=== PATIENT | male | born 1950 | race Caucasian/White ===

== ENCOUNTER 2021-04-10 10:33 | Outpatient (REF) | payer MEDICARE, SELFPAY ==
[2021-04-10 13:45] LABS: MANUAL DIFF FLAG NO
[2021-04-10 13:57] LABS: Basophils Percent Auto 0.5 % (0-2); Eosinophils Absolute Auto 0.2 X10*3/uL (0.0-0.4); Eosinophils Percent Auto 5.6 % (0-4); Hematocrit 43.1 % (42.0-52.0); Imm Gran Abs Auto 0.01 X10*3/uL (0.00-0.03); Imm Gran Pct Auto 0.2 % (0.0-0.4); Lymphocytes Absolute Auto 1.3 X10*3/uL (1.2-4.9); Lymphocytes Percent Auto 29.6 % (20-40); Mean Corpuscular HGB Conc 34.8 g/dl (31.0-36.0); Mean Corpuscular Hemoglobin 31.3 pg (27.0-33.0); Mean Platelet Volume 10.4 fL (9.4-12.4); Monocytes Absolute Auto 0.4 X10*3/uL (0.1-1.2); Monocytes Percent Auto 8.6 % (2-11); Neutrophils Absolute Auto 2.4 x10*3/uL (2.0-8.3); Neutrophils Percent Auto 55.5 % (45-73); Platelet Count 219 X10*3/uL (160-400); Red Blood Count 4.79 X10*6/uL (4.60-5.80); Red Cell Distribution Width 12.2 % (11.0-16.0); White Blood Count 4.3 X10*3/uL (4.8-10.8)
[2021-04-10 14:03] LABS: Appearance Urine CLEAR; Color Urine YELLOW; Glucose Urine UA NEG (NEG); Leukocyte Esterase Urine NEG (NEG); Nitrite Urine NEG (NEG); Urine Blood NEG (NEG); Urine Ketones NEG (NEG); Urine Protein NEG (NEG-TRACE)
[2021-04-10 14:39] LABS: Free T4 (Free Thyroxine) 0.87 ng/dL (0.71-1.85); Prostate Specific Antigen Scr 3.19 ng/mL (<0.05-4.0); Thyroid Stimulating Hormone 2.69 uIU/mL (0.32-4.0)
[2021-04-10 14:42] LABS: Alanine Aminotransferase 30 U/L (0-40); Albumin Level 4.5 g/dL (3.5-5.0); Alkaline Phosphatase 66 U/L (39-117); Anion Gap 11 (12-20); Aspartate Amino Transferase 24 U/L (5-37); Bilirubin Total 0.7 mg/dL (0.0-1.0); Blood Urea Nitrogen 14 mg/dL (9-16); Calcium 8.9 mg/dL (8.4-10.2); Carbon Dioxide 26 mmol/L (22-29); Chloride 104 mmol/L (96-108); Cholesterol 240 mg/dL; Estimated Glomerular Filt Rate > 60; Glucose Fasting 157 mg/dL (60-99); HDL Cholesterol 44 mg/dL; LDL Cholesterol Calculated 163 mg/dl; Potassium 4.3 mmol/L (3.3-5.1); Sodium 137 mmol/L (135-145); Triglycerides 165 mg/dL
[2021-04-10 14:51] LABS: TSH reflex Free T4 2.49 uIU/mL (0.32-4.0)
[2021-04-11 20:41] LABS: Triiodothyronine T3 Total 106 ng/dL (76-181)
== END 2021-04-10 10:34 | disposition home or self-care (01) ==
LOC: HO.WFDLDS 10:33
PROVIDERS: Visit Provider Family Medicine
DX: Z00.00 Encounter for general adult medical examination without abnormal findings (principal); Z12.5 Encounter for screening for malignant neoplasm of prostate; E03.9 Hypothyroidism, unspecified
CPT/HCPCS: 36415; 80053; 80061; 81003; 84153; 84439; 84443; 84480; 85025

== ENCOUNTER 2021-05-22 08:43 | Outpatient (REF) | payer MEDICARE, SELFPAY | END 2021-05-22 08:44 | disposition home or self-care (01) | LOC: HO.WFDLDS 08:43 | PROVIDERS: Visit Provider Internal Medicine | DX: Z20.822 Contact with and (suspected) exposure to COVID-19 (principal) | CPT/HCPCS: C9803; U0003; U0005 ==

== ENCOUNTER 2021-06-26 09:54 | Outpatient (REF) | payer MEDICARE, SELFPAY ==
[2021-06-26 11:14] LABS: Estimated Average Glucose 174 mg/dL; Hemoglobin A1c % 7.7 %
[2021-06-26 11:49] LABS: Anion Gap 10 (12-20); Blood Urea Nitrogen 15 mg/dL (9-16); Calcium 9.8 mg/dL (8.4-10.2); Carbon Dioxide 29 mmol/L (22-29); Chloride 103 mmol/L (96-108); Estimated Glomerular Filt Rate > 60; Glucose Fasting 204 mg/dL (60-99); Potassium 4.3 mmol/L (3.3-5.1); Sodium 138 mmol/L (135-145)
== END 2021-06-26 09:55 | disposition home or self-care (01) ==
LOC: HO.WFDLDS 09:54
PROVIDERS: Visit Provider Family Medicine
DX: R73.01 Impaired fasting glucose (principal)
CPT/HCPCS: 36415; 80048; 83036

== ENCOUNTER 2021-07-11 14:30 | Outpatient (REF) | payer MEDICARE, SELFPAY ==
--- NOTE | ~2021-07-11 | XR_ITS ---
EXAMINATION: XR CHEST CLINICAL INFORMATION: Cough COMPARISON: None TECHNIQUE: 2 views of the chest were obtained. FINDINGS: No significant abnormality is noted involving the heart, lungs, mediastinum, bony thorax or soft tissues. XR/XR chest 2V IMPRESSION: No acute disease.
== END 2021-07-11 14:31 | disposition home or self-care (01) ==
LOC: HO.HMGCX 14:30
PROVIDERS: Visit Provider Family Medicine
DX: R05.9 Cough, unspecified (principal)
CPT/HCPCS: 71046

== ENCOUNTER 2021-07-17 10:00 | Outpatient (RCR) | payer MEDICARE, SELFPAY ==
--- NOTE | 2021-06-12 13:20 | MHC.PT.EP ---
[facility] [place] Office [place] Office [place] Office [address] Conor Bailon [address] [phone] F: [phone] F: [phone] F: [phone] F: [phone] Physical Therapy Plan of Care Date of Evaluation: Date of Surgery: Diagnosis: Left shoulder pain M25.512 signed by Jose Luis Aguilar on 06/05/21 Assessment: Pt is a R hand dominant, 70 y/o retired male, referred to PT on 06/05/[address] Aguilar (seen to establish new PCP point of care) for treatment of left shoulder pain following several year history. Pt expressed history of L distal bicep repair by Dr. Pickard ~2011 with past history of having xray 7 months ago indicating calcification (states xray done at [facility]). Pt exhibits sx consistent with (+) L shoulder impingement/tendonitis, TTP over supraspinatus demonstrating limited/painful AROM, impaired GH mechanics, tight upper trap/lats/periscap, and resulting in impaired tolerance for elevation, lifting, and sleeping due to pain. Pt was encouraged to attend skilled PT services at a frequency of 2x/week x 4 weeks, however pt electing 1x/weekly to address impairments, implement HEP, and restore functional mobility tolerance to resume PLOF. Today after initial evaluation, he was initiated in AAROM cane flexion/scaption in supine and also seated option of AAROM tables slides to address ROM deficits in scaption/flexion. Stretches for L levator scap and upper trap were was also initiated with good tolerance. He demonstrated good response to trial of gentle oscillatory GH inferior/posterior joint mobs. He was educated in the benefit of icing to minimize pain in the L shoulder. He was educated re: findings of evaluation, causes of impingement/calcific tendonitis, goal of PT, and HEP program which was issued in writing. Frequency and Duration: The patient will be seen 1x/week x 4 weeks Short Term Goals: 1. AAROM L shoulder flexion to 120. 2. AAROM L shoulder scaption to 120. 3. AAROM IR to midline lumbar L3. 4. Initiate HEP and self care. 5. SPADI scores to improve by 25%. Penitentiary Goals: 1. AROM L shoulder to flexion to 150 to reach overhead. 2. I HEP. 3. Strength 5/5 all planes L shoulder. 4. Resume sleeping without disturbance secondary to pain in L UE. 5. SPADI score to be improved by 50%. Treatment Plan: Modalities to reduce pain, spasms and effusion. Manual therapy to restore motion and function. Therapeutic exercise to improve strength and flexibility. Neuromuscular re-education for posture and balance. Therapeutic activities to return to functional activities of daily living. Electronically signed by: Ania Gaspar PT, DPT Please sign and return to therapist. Thank you for your referral.
== END 2021-12-05 13:46 | disposition home or self-care (01) ==
LOC: HO.PTWFD 10:00
PROVIDERS: PCP Family Medicine; Visit Provider Family Medicine
DX: M25.512 Pain in left shoulder (principal)
CPT/HCPCS: 97110; 97140; 97161; 97535

== ENCOUNTER 2021-08-14 09:38 | Outpatient (REF) | payer MEDICARE, SELFPAY ==
[2021-08-14 11:41] LABS: Cholesterol 248 mg/dL; HDL Cholesterol 39 mg/dL; LDL Cholesterol Calculated 186 mg/dl; Triglycerides 116 mg/dL
== END 2021-08-14 09:39 | disposition home or self-care (01) ==
LOC: HO.WFDLDS 09:38
PROVIDERS: Visit Provider Family Medicine
DX: Z00.00 Encounter for general adult medical examination without abnormal findings (principal); E78.5 Hyperlipidemia, unspecified
CPT/HCPCS: 36415; 80061

== ENCOUNTER 2021-12-08 08:18 | Outpatient (REF) | payer MEDICARE, SELFPAY ==
[2021-12-08 11:44] LABS: Alanine Aminotransferase 25 U/L (0-40); Albumin Level 4.6 g/dL (3.5-5.0); Alkaline Phosphatase 61 U/L (39-117); Anion Gap 12 (12-20); Aspartate Amino Transferase 24 U/L (5-37); Bilirubin Total 0.8 mg/dL (0.0-1.0); Blood Urea Nitrogen 17 mg/dL (9-16); Carbon Dioxide 25 mmol/L (22-29); Chloride 107 mmol/L (96-108); Cholesterol 157 mg/dL; Estimated Glomerular Filt Rate > 60; Glucose Fasting 94 mg/dL (60-99); HDL Cholesterol 46 mg/dL; LDL Cholesterol Calculated 102 mg/dl; Potassium 4.5 mmol/L (3.3-5.1); Sodium 139 mmol/L (135-145); Total Protein 6.8 g/dL (6.5-8.0); Triglycerides 48 mg/dL
[2021-12-08 12:21] LABS: Creatinine Urine 165.96 mg/dL
== END 2021-12-08 08:19 | disposition home or self-care (01) ==
LOC: HO.WFDLDS 08:18
PROVIDERS: Visit Provider Family Medicine
DX: Z00.00 Encounter for general adult medical examination without abnormal findings (principal); I10 Essential (primary) hypertension; E78.5 Hyperlipidemia, unspecified; E11.9 Type 2 diabetes mellitus without complications
CPT/HCPCS: 36415; 80053; 80061; 82043

== ENCOUNTER 2022-06-08 08:46 | Outpatient (REF) | payer MEDICARE, SELFPAY ==
[2022-06-08 11:05] LABS: MANUAL DIFF FLAG NO
[2022-06-08 11:13] LABS: Basophils Absolute Auto 0.1 X10*3/uL (0.0-0.2); Eosinophils Absolute Auto 0.2 X10*3/uL (0.0-0.4); Eosinophils Percent Auto 3.1 % (0-4); Hematocrit 44.4 % (42.0-52.0); Imm Gran Abs Auto 0.01 X10*3/uL (0.00-0.03); Imm Gran Pct Auto 0.2 % (0.0-0.4); Lymphocytes Absolute Auto 1.5 X10*3/uL (1.2-4.9); Mean Corpuscular HGB Conc 33.8 g/dl (31.0-36.0); Mean Corpuscular Hemoglobin 31.9 pg (27.0-33.0); Mean Corpuscular Volume 94.5 fL (80.0-98.0); Mean Platelet Volume 10.2 fL (9.4-12.4); Monocytes Absolute Auto 0.4 X10*3/uL (0.1-1.2); Monocytes Percent Auto 7.8 % (2-11); Neutrophils Absolute Auto 2.7 x10*3/uL (2.0-8.3); Neutrophils Percent Auto 56.9 % (45-73); Platelet Count 221 X10*3/uL (160-400); Red Cell Distribution Width 12.4 % (11.0-16.0); White Blood Count 4.8 X10*3/uL (4.8-10.8)
[2022-06-08 11:17] LABS: Appearance Urine Clear; Color Urine Yellow; Glucose Urine UA Negative (Negative); Leukocyte Esterase Urine Negative (Negative); Nitrite Urine Negative (Negative); PH 5.5 (5.0-9.0); Specific Gravity - Urine >= 1.030 (1.005-1.025); Urine Blood Negative (Negative); Urine Ketones Negative (Negative); Urine Protein Negative (Neg-Trace)
[2022-06-08 11:30] LABS: Alanine Aminotransferase 19 U/L (0-40); Albumin Level 4.2 g/dL (3.5-5.0); Alkaline Phosphatase 49 U/L (39-117); Anion Gap 10 (12-20); Aspartate Amino Transferase 16 U/L (5-37); Bilirubin Total 0.6 mg/dL (0.0-1.0); Blood Urea Nitrogen 21 mg/dL (9-16); Carbon Dioxide 27 mmol/L (22-29); Chloride 107 mmol/L (96-108); Cholesterol 181 mg/dL; Estimated Glomerular Filt Rate > 60; Glucose Fasting 154 mg/dL (60-99); HDL Cholesterol 46 mg/dL; LDL Cholesterol Calculated 120 mg/dl; Potassium 4.1 mmol/L (3.3-5.1); Sodium 140 mmol/L (135-145); Total Protein 6.4 g/dL (6.5-8.0); Triglycerides 78 mg/dL
[2022-06-08 11:46] LABS: Prostate Specific Antigen Scr 4.88 ng/mL (<0.05-4.0); TSH reflex Free T4 3.27 uIU/mL (0.32-4.0)
[2022-06-08 12:52] LABS: Creatinine Urine 132.28 mg/dL; Microalbum/Creatinine Ratio Ur 7.5 ug/mg cr
== END 2022-06-08 08:47 | disposition home or self-care (01) ==
LOC: HO.WFDLDS 08:46
PROVIDERS: Visit Provider Family Medicine
DX: Z00.00 Encounter for general adult medical examination without abnormal findings (principal); Z12.5 Encounter for screening for malignant neoplasm of prostate; I10 Essential (primary) hypertension
CPT/HCPCS: 36415; 80053; 80061; 81003; 82043; 84153; 84443; 85025

== ENCOUNTER → 2022-06-26 09:02 | Outpatient (BNVA) | payer MEDICARE, SELFPAY | PROVIDERS: PCP Family Medicine; Visit Provider Nurse Practitioner Family | DX: R97.20 Elevated prostate specific antigen [PSA] (principal); N40.1 Benign prostatic hyperplasia with lower urinary tract symptoms; R35.0 Frequency of micturition; R35.1 Nocturia | CPT/HCPCS: 51798; 99202 ==

== ENCOUNTER 2022-07-16 11:42 | Emergency (ER) | payer MEDICARE, SELFPAY ==
--- NOTE | ~2022-07-16 | XR_ITS ---
EXAMINATION: XR SHOULDER, RIGHT CLINICAL INFORMATION: Decreased range of motion after falling COMPARISON: None TECHNIQUE: AP external rotation, Grashey, scapular Y, and axillary views of the right shoulder. FINDINGS: Small fragment of bone seen related to the supraspinatus tendon but no acute fracture, dislocation or destructive process. There is degenerative change in the right AC joint. The clavicle does appear intact. XR/XR shoulder RT min 2V IMPRESSION: No acute findings. There is mild degenerative change related to the supraspinatus tendon.
--- NOTE | 2022-07-16 13:00 | ED.FALL ---
HPI - Fall General Chief Complaint: Fall Stated Complaint: fall 07/16/22 Time Seen by Provider: 07/16/22 14:26 Source: patient Mode of arrival: ambulatory Limitations: no limitations History of Present Illness HPI Narrative: Patient is a 71-year-old male who presents to the emergency department for evaluation after a fall. This occurred today. Fell down about 7-8 stairs, right arm was raised overhead, slid down on right side. No forward fall, no neurological complaints, Denies head strike, LOC, AC usage. Pain present to right shoulder with limited AROM, right elbow with abrasions mild pain and near full AROM, abrasions to digits on right hand. Related Data Home Medications Medication Instructions Recorded Confirmed ascorbic acid (vitamin C) 1,000 mg 1 g PO DAILY 06/05/21 06/26/22 tablet cholecalciferol (vitamin D3) 25 25 mcg PO DAILY 06/05/21 06/26/22 mcg (1,000 unit) capsule magnesium 200 mg tablet 200 mg PO DAILY 06/05/21 06/26/22 Previous Rx's Medication Instructions Recorded atorvastatin 20 mg tablet 20 mg PO BEDTIME 90 days #90 tabs 12/10/21 metformin 500 mg tablet 500 mg PO DAILY 90 days #90 tabs 12/10/21 levothyroxine 50 mcg tablet 50 mcg PO DAILY 90 days #90 tabs 05/25/22 terazosin 5 mg capsule 5 mg PO BEDTIME 90 days #90 caps 06/26/22 omeprazole 20 mg capsule,delayed 20 mg PO DAILY #14 caps 07/16/22 release Allergies Allergy/AdvReac Type Severity Reaction Status Date / Time No Known Allergies Allergy Verified 06/26/22 10:30 Review of Systems Review of Systems: Yes all other systems are reviewed and are negative [facility] Past Medical History Attestation statement: The following information was validated with the patient. Source: old records reviewed Surgical History History of hernia repair Family History Family History Mother No problems noted. Father No problems noted. Social History Social History Housing: Apartment Patient Tobacco Use Status: Former Tobacco user Quit Date: 1981 Tobacco use type: Cigarette Years Smoked: 12 years e-Cigarette/Vaping Use: Never Used Second Hand Smoke Exposure: No Advance Directives: No Advance Directives Information Provided: No service: No Current occupational status: retired Current occupational exposures/hazards: No Cognitive needs: No Hearing needs: No Vision needs: No Physical Exam Vital Signs: Vital Signs: Last Vital Signs Temp 97.9 F 07/16/22 13:02 Pulse 78 07/16/22 13:02 Resp 16 07/16/22 13:02 BP 157/86 H 07/16/22 13:02 Pulse Ox 98 07/16/22 13:02 O2 Del Method 07/16/22 13:02 BMI result Body Mass Index 27.1 Appearance: Alert.?Oriented to person, place and time. No acute distress.?Normal affect. Head: Normocephalic atraumatic Eyes: Pupils equal, round and reactive to light.? EOMI. Neck: Normal inspection.? Neck supple.??No midline cervical spine tenderness, step-offs, deformities CVS: Heart sounds normal. Normal heart rate and rhythm.? Pulses normal.?? Respiratory: No respiratory distress.? Lung sounds clear to auscultation bilaterally?? Abdomen: Soft and non-tender. Normoactive bowel sounds. Skin: Skin warm and dry.? Normal skin color.? Extremities: Decreased AROM to right shoulder. 2+ radial pulse bilaterally. Neuro: Moves all extremities spontaneously. Sensation intact bilaterally. No focal neuro deficits. Ambulates with normal steady gait. Course Course Course Narrative: This is an RME: Additional HPI, ROS, PE not included below will be deferred to primary provider. Patient is a 71-year-old male who presents to the emergency department for evaluation after a fall. This occurred today. Fell down about 7-8 stairs, right arm was raised overhead, slid down on right side. No forward fall, no neurological complaints, Denies head strike, LOC, AC usage. Pain present to right shoulder with limited AROM, right elbow with abrasions mild pain and near full AROM, abrasions to digits on right hand. Plan: XR right shoulder Medical Decision Making Medical Decision Making MDM Narrative: Right elbow with full AROM, does not appear consistent with acute fracture dislocation, small abrasion, cleansed, topical bacitracin applied. Right wrist and digits with full range of motion as well, do not suspect acute fracture dislocation. Extremity is neurovascularly intact distally. The right shoulder has significant decreased AROM, diffuse tenderness upon palpation. I have personally interpreted x-ray imaging. Radiologist impression includes no acute fracture, mild degenerative changes related to supraspinatus tendon. I do see the presence of small fragment noted, concern at this time for likely chronic calcific tendinitis versus possible avulsion fracture. Discussed these findings with patient. Will be placed in a sling to immobilize the shoulder, ibuprofen 400 mg 3 times daily, outpatient follow-up with Orthopedics. All questions answered. Differential Diagnosis Differential Diagnoses: The differential diagnosis associated with the presentation includes (Fracture, dislocation, strain, tendon rupture) Independent Interpretation I performed an independent interpretation of an: Plain X-Ray Radiology Impression Discussion of test interpretation with radiology: I have reviewed the radiologist's reading. Radiologist Impression: XR/XR shoulder RT min 2V IMPRESSION: No acute findings. There is mild degenerative change related to the supraspinatus tendon. Prescription Management I considered prescription management with: Pain Medication and Other (PPI) Discharge Plan Discharge Clinical Impression: Right shoulder strain Patient Disposition: Home, Self-Care Additional Instructions: As discussed, please call the orthopedic office, there number has been provided, you will need to follow-up with them. Wear the sling at all times until re-evaluated. Be sure to rest, apply ice to the area for 10-15 minutes 4-6 times daily. You can take ibuprofen 200 mg, 2 tablets (400mg) three times daily every 6-8 hours as needed for pain, in addition to Tylenol 500 mg, 2 tablets (1,000mg) every 4-6 hours as needed for pain, but not to exceed 3 doses daily (3,000mg). Please take the Prilosec as prescribed while taking ibuprofen You may return back to emergency department with any new or worsening symptoms or concerns. ? Prescriptions: New omeprazole 20 mg capsule,delayed release(DR/EC) 20 mg PO DAILY Qty: 14 0RF No Action levothyroxine 50 mcg tablet 50 mcg PO DAILY 90 Days Qty: 90 3RF metformin 500 mg tablet 500 mg PO DAILY 90 Days Qty: 90 2RF atorvastatin 20 mg tablet 20 mg PO BEDTIME 90 Days Qty: 90 2RF cholecalciferol (vitamin D3) 25 mcg (1,000 unit) capsule 25 mcg PO DAILY ascorbic acid (vitamin C) 1,000 mg tablet 1 g PO DAILY magnesium 200 mg tablet 200 mg PO DAILY terazosin 5 mg capsule 5 mg PO BEDTIME 90 Days Qty: 90 1RF Referrals: Maxim Boston PA-C [Physician [employer]] - Interventions: ED Discharge Assessment Last Done: 07/16/22 16:38
[2022-07-16 13:02] VITALS: BP 157/86; PULSE 78; RESP 16; TEMP 36.6; O2SAT 98; BMI 27.1
== END 2022-07-16 19:30 | disposition home or self-care (01) ==
PROVIDERS: Emergency Provider Emergency Medicine; PCP Family Medicine
DX: S46.911A Strain of unspecified muscle, fascia and tendon at shoulder and upper arm level, right arm, initial encounter (principal); S50.311A Abrasion of right elbow, initial encounter; S60.419A Abrasion of unspecified finger, initial encounter; W10.8XXA Fall (on) (from) other stairs and steps, initial encounter; Y93.9 Activity, unspecified; Y92.038 Other place in apartment as the place of occurrence of the external cause; Y99.9 Unspecified external cause status
CPT/HCPCS: 73030; 99282; 99283

== ENCOUNTER 2022-07-23 09:39 | Outpatient (REF) | payer MEDICARE, SELFPAY ==
--- NOTE | ~2022-07-23 | US_ITS ---
EXAMINATION: US RETROPERITONEAL COMPLETE (RENAL) CLINICAL INFORMATION: Elevated PSA. COMPARISON: Ultrasound abdomen complete 06/20/2014. TECHNIQUE: Real-time imaging of the kidneys and bladder. FINDINGS: RIGHT KIDNEY: 10.2 x 5.9 x 5.3 cm (SAG x AP x TRV). The kidney is normal in size, contour, and echogenicity. Renal cortical thickness is normal. No renal calculi or hydronephrosis. There is anechoic cyst in midpole medially measuring 0.7 x 0.5 x 0.8 cm. LEFT KIDNEY: 10.5 x 6.0 x 4.9 cm (SAG x AP x TRV). The kidney is normal in size, contour, and echogenicity. Renal cortical thickness is normal. No renal calculi or hydronephrosis. There is anechoic cyst in upper pole laterally measuring 1.8 x 2.1 x 1.9 cm. BLADDER: Well distended and normal. Bilateral ureteral jets are demonstrated. Prevoid bladder volume is 190 mL. Postvoid bladder volume is 85.7 mL. ADDITIONAL FINDINGS: The prostate gland is enlarged. US/US retroperitoneal comp IMPRESSION: There are bilateral renal cysts. There is enlarged prostate gland with moderate postvoid residual bladder volume.
== END 2022-07-23 09:40 | disposition home or self-care (01) ==
LOC: HO.US 09:39
PROVIDERS: PCP Family Medicine; Visit Provider Nurse Practitioner Family
DX: R35.0 Frequency of micturition (principal); R97.20 Elevated prostate specific antigen [PSA]; R35.1 Nocturia
CPT/HCPCS: 76770

== ENCOUNTER → 2022-08-05 09:16 | Outpatient (BNVA) | payer MEDICARE, SELFPAY | PROVIDERS: PCP Family Medicine; Visit Provider Nurse Practitioner Family | DX: R97.20 Elevated prostate specific antigen [PSA] (principal); N40.1 Benign prostatic hyperplasia with lower urinary tract symptoms; R35.1 Nocturia; R35.0 Frequency of micturition | CPT/HCPCS: 99212 ==

== ENCOUNTER 2022-08-31 08:33 | Outpatient (REF) | payer MEDICARE, SELFPAY | END 2022-08-31 08:34 | disposition home or self-care (01) | LOC: HO.WFDLDS 08:33 | PROVIDERS: Visit Provider Nurse Practitioner Family | DX: R97.20 Elevated prostate specific antigen [PSA] (principal); R35.0 Frequency of micturition; R35.1 Nocturia; Z12.5 Encounter for screening for malignant neoplasm of prostate | CPT/HCPCS: 36415; 84153 ==

== ENCOUNTER 2022-09-09 10:02 | Outpatient (REF) | payer MEDICARE, SELFPAY ==
[2022-09-09 11:41] LABS: Anion Gap 12 (12-20); Blood Urea Nitrogen 18 mg/dL (9-16); Calcium 9.8 mg/dL (8.4-10.2); Carbon Dioxide 29 mmol/L (22-29); Chloride 105 mmol/L (96-108); Cholesterol 193 mg/dL; Estimated Glomerular Filt Rate > 60; Glucose Fasting 120 mg/dL (60-99); HDL Cholesterol 56 mg/dL; LDL Cholesterol Calculated 123 mg/dl; Potassium 4.5 mmol/L (3.3-5.1); Sodium 141 mmol/L (135-145); Triglycerides 71 mg/dL
== END 2022-09-09 10:03 | disposition home or self-care (01) ==
LOC: HO.WFDLDS 10:02
PROVIDERS: Visit Provider Family Medicine
DX: Z00.00 Encounter for general adult medical examination without abnormal findings (principal); E78.5 Hyperlipidemia, unspecified
CPT/HCPCS: 36415; 80048; 80061

== ENCOUNTER 2022-10-08 09:00 | Outpatient (RCR) | payer MEDICARE, SELFPAY | END 2022-12-09 08:25 | disposition home or self-care (01) | LOC: HO.PTWFD 09:00 | PROVIDERS: PCP Family Medicine; Visit Provider Physician Assistant | DX: M75.91 Shoulder lesion, unspecified, right shoulder (principal) | CPT/HCPCS: 97110; 97140; 97150; 97161; 97535 ==

== ENCOUNTER 2022-12-10 09:34 | Outpatient (AMB) | payer MEDICARE, SELFPAY ==
[2022-12-10 09:40] VITALS: BP 132/74; PULSE 87; O2SAT 95; BMI 25.8
--- NOTE | 2022-12-10 09:40 | A.OFFPC_ITS ---
Vital Signs 12/10/22 09:40 Height 5 ft 6 in Weight 160 lb BMI 25.8 BP 132/74 Blood Pressure Location Lt brachial Position Sitting Pulse 87 Pulse Source Pulse Oximeter Pulse Oximetry (%) 95 Oxygen Delivery Method Room Air Intake Visit Reasons: Follow-up diabetes and hyperlipidemia Intake Note: Patient is here to follow up on diabetes and hyperlipidemia. Allergies No Known Allergies Allergy (Verified 12/10/22 09:41) Tobacco use date assessed: 12/10/22 Fall risk assessment: 1 Fall in past year Last assessed Fall Risk: 12/10/22 Dental Screening Dental Screen Date: 12/10/22 Did you have a dental visit in the last 12 months?: Yes Did you have a dental problem in the last 6 months where you did not have access to dental care?: No Was dental information given to patient?: No HPI Follow-up diabetes and hyperlipidemia HPI Details 72 y/o male presents to f/u diabetes and hyperlipidemia. Last A1c 09/09/22 was 6.0%. He is on metformin 500mg daily. A1c today 12/10/22 is 5.4%. Labs were drawn 09/09/22. Reviewed labs with pt. Triglycerides 71. TC 193. LDL 123. HDL 56. He is on artovastatin 20mg daily. He denies any problems with his artovastatin. [facility] Surgical History (Updated 12/10/22 @ 09:43 by Celina Batista CMA) History of cataract surgery History of hernia repair Family History Mother No problems noted. Father No problems noted. Social History Housing: Apartment Patient Tobacco Use Status: Former Tobacco user Quit Date: 1981 Tobacco use type: Cigarette Years Smoked: 12 years e-Cigarette/Vaping Use: Never Used Second Hand Smoke Exposure: No service: No Current occupational status: retired Current occupational exposures/hazards: No Cognitive needs: No Hearing needs: No Vision needs: No Questionnaire Thrive Questionnaire Date Thrive assessed: 04/10/21 MARCELINA-7 AMB Questionnaire MARCELINA-7 Date MARCELINA - 7 assessed: 04/01/22 Source: Developed by Drs. Tyler Loya, Diana Rios, Niko Hurst and colleagues, with an educational davi from [employer]. Review of Systems Const Denies chills, Denies fatigue, Denies fever(s), Denies headache(s) and Denies weakness ENT Denies dizziness and Denies headache(s) Card Denies chest pain, Denies lightheadedness, Denies dyspnea and Denies other (Palpitations) Resp Denies cough, Denies dyspnea, Denies wheezing and Denies other ( shortness of breath) Musc Denies numbness and Denies tingling Neuro Denies dizziness, Denies headache(s), Denies numbness, Denies tingling, Denies paresthesias and Denies weakness Psych Denies anxiety and Denies depression Endo Denies fatigue Aller/Immun Denies wheezing Physical exam (Primary Care) Vital Signs: Last Vital Signs Pulse 87 12/10/22 09:40 BP 132/74 12/10/22 09:40 Pulse Ox 95 12/10/22 09:40 Oxygen Delivery Method Room Air 12/10/22 09:40 BMI result Body Mass Index 25.8 Tobacco/Smoking Status: Tobacco use Status Tobacco use date assessed 12/10/22 12/10/22 09:43 Patient Tobacco Use Status Former Tobacco user 12/10/22 09:43 Tobacco use type Cigarette 12/10/22 09:43 e-Cigarette/Vaping Use Never Used 12/10/22 09:43 Thrive Assessment: Date of Thrive Assessment Date Thrive assessed 04/10/21 12/10/22 09:43 Const General: no acute distress and well developed Nutritional Appearance: well nourished Orientation/consciousness: patient oriented x3 [facility] Head: Yes normocephalic and Yes atraumatic Eyes General: appearance normal, both eyes and all related structures Pupils: Equal, round and reactive pupils present EOM: EOMs intact bilaterally Resp Effort & Inspection: normal respiratory effort Auscultation: clear to auscultation bilaterally Cardio Rate: regular rate Rhythm: regular rhythm Heart sounds: S1 normal heart sound present, S2 normal heart sound present, no gallops, no murmurs and no rubs Neuro General: patient oriented x3 and gait normal Cranial nerves: Yes Equal, round and reactive pupils present Psych Affect: normal affect Results AMB Hemoglobin A1c AMB Hemoglobin A1c 5.4 % Last Edit by April Gramajo MA on 12/10/22 10:25 Assessment and Plan Assessment & Plan (1) Diabetes: Code(s): E11.9 - Type 2 diabetes mellitus without complications Plan: A1c 5.4%; good control. Goal is less than 7% Continue current medication regimen for now as he has had difficulty exercising and will be getting a surgery on his shoulder fairly soon. Afterwards, we may consider decreasing his metformin, particularly if A1c continues to decrease. He has an upcoming eye appointment (2) Hyperlipidemia: Code(s): E78.5 - Hyperlipidemia, unspecified Plan: LDL cholesterol is above goal of less than 100 for patient with diabetes Increasing his atorvastatin to 40 mg daily Orders: Orders Lipid Panel Today E78.5 - Hyperlipidemia, unspecified, Z00.00 - Encounter for general adult medical examination without abnormal findings Basic Metabolic Panel Fasting Today E78.5 - Hyperlipidemia, unspecified Medications: Changed From atorvastatin 20 mg PO BEDTIME 90 days 90 tabs 2RF To atorvastatin 40 mg PO BEDTIME 90 tabs 2RF 90 days Coding Level of Care Code Est Pt Level 3 (42680) Diagnoses Diabetes E11.9 Hyperlipidemia E78.5
== END 2022-12-10 10:28 | disposition home or self-care (01) ==
PROVIDERS: PCP Family Medicine; Visit Provider Family Medicine
DX: E11.9 Type 2 diabetes mellitus without complications (principal); E78.5 Hyperlipidemia, unspecified
CPT/HCPCS: 99213

== ENCOUNTER 2023-03-03 10:18 | Outpatient (REF) | payer MEDICARE, SELFPAY ==
[2023-03-03 12:02] LABS: Prostate Specific Antigen 3.54 ng/mL (<0.05-4.0)
== END 2023-03-03 10:19 | disposition home or self-care (01) ==
LOC: HO.LAB 10:18
PROVIDERS: PCP Family Medicine; Visit Provider Nurse Practitioner Family
DX: N40.1 Benign prostatic hyperplasia with lower urinary tract symptoms (principal); Z12.5 Encounter for screening for malignant neoplasm of prostate
CPT/HCPCS: 36415; 84153

== ENCOUNTER 2023-03-04 10:18 | Outpatient (AMB) | payer MEDICARE, SELFPAY ==
--- NOTE | 2023-03-04 10:31 | MHC.OFFVIS ---
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 He has a past medical history of hypothyroidism, elevated PSA, and hyperlipidemia. He presents to the office today for a follow up of his elevated PSA. Recent PSA results reviewed with the patient today. PSAs are as follows: 06/13--3.2 06/15--4.9 09/13--3.5 03/15--3.5 Previous workup has included a retroperitoneal ultrasound noting bilateral kidneys normal in size, contour, and echogenicity. There are no renal calculi or hydronephrosis bilaterally. There are bilateral cysts in the mid pole to upper pole of each kidney. The bladder is well distended and normal. The prostate gland is enlarged measuring approximately 50 mL. Patient with a previous history of prostate biopsy with [facility] with Dr. Martino and biopsy was negative. He states the biopsy was approximately 3 years ago. When asked patient does report a family history of prostate cancer. He reports father and brother both have had prostate cancer. In discussion with the patient today regarding his urination he reports terazosin 5mg daily to be working well. He does endorse to episodes of nocturia with urinary hesitancy however reports symptoms to be much improved compared to prior. He reports never starting Finasteride as planned during last office visit as he did not care for the side effects listed with the medication when he picked it up from the pharmacy. He states his nocturia is substantially better however he does continue with intermittent episodes of nocturia and urinary hesitancy. He otherwise denies urinary urgency, urinary frequency, incontinence, hematuria, dysuria, foul smelling urine, changes to urinary stream, flank pain, fever, and or chills. He is happy with his current voiding parameters. Discussed PCP T calculator 03/15 77% negative, 16% chance of low-grade prostate cancer, and 7% chance high-grade prostate cancer. Discussed surveillance monitoring verses finasteride versus prostate biopsy given family history. He otherwise offers no other issues or concerns at this time. [facility] Surgical History (Updated 12/10/22 @ 09:43 by Celina Batista CMA) History of cataract surgery History of hernia repair Family History Mother No problems noted. Father No problems noted. Social History Housing: Apartment Patient Tobacco Use Status: Former Tobacco user Quit Date: 1981 Tobacco use type: Cigarette Years Smoked: 12 years e-Cigarette/Vaping Use: Never Used Second Hand Smoke Exposure: No service: No Current occupational status: retired Current occupational exposures/hazards: No Cognitive needs: No Hearing needs: No Vision needs: No Review of Systems Const Reports no additional complaints Eyes Reports no additional complaints ENT Reports no additional complaints Card Reports as per HPI Resp Reports no additional complaints GI Reports no additional complaints Reports as per HPI Musc Reports no additional complaints Neuro Reports no additional complaints Psych Reports no additional complaints Endo Details: Patient reports being diagnosed with diabetes however is now more well controlled with metformin and diet control as well as exercise. Reports as per HPI Huang/Lymph Reports no additional complaints Aller/Immun Reports no additional complaints Physical Exam Const General: cooperative, healthy appearing, comfortable, no acute distress, well developed, alert and awake Nutritional Appearance: average body habitus Orientation/consciousness: patient oriented x3 Limitations: no limitations HEENT Head: Yes normal to inspection, Yes normocephalic and Yes atraumatic Ears: hearing grossly normal bilaterally Eyes General: appearance normal, both eyes and all related structures Neck Neck: Yes normal visual inspection and Yes trachea midline Chest Chest palpation & inspection: normal inspection of the chest Resp Effort & Inspection: normal respiratory effort and able to speak in complete sentences Cardio Rate: regular rate GI Inspection: Yes normal to inspection General: Yes no CVA tenderness Back/Spine/Pelvis Back: no CVA tenderness Skin General skin exam: no rashes or lesions noted Neuro General: patient oriented x3 Extrem General: Yes normal to inspection Psych Appearance: grossly normal and well kempt Mental Status: mental status grossly normal Speech and movement: Normal speech and movement present and Clear speech present Affect: normal affect Attitude: cooperative Thought process: Normal thought process present Thought content: Normal thought content present Insight: Good insight present (Psych) Judgement: Good judgement present (Psych) Office Procedures Post Void Residual Post Residual Void Post Void Residual (PVR): 0 21032-Cwmu Void Residual by ultrasound Results AMB Urinalysis, Automated UA Leukoctes 0 Harish/uL Last Edit by Biz In A Box JV on 03/04/23 10:59 UA Nitrite Negative Last Edit by Biz In A Box JV on 03/04/23 10:59 UA Urobilinogen 0.2 mg/dL Last Edit by Coinsetter on 03/04/23 10:59 UA Protein 0 mg/dL Last Edit by Biz In A Box JV on 03/04/23 10:59 UA pH 5.5 Last Edit by Biz In A Box JV on 03/04/23 10:59 UA Blood 0 Dg/uL Last Edit by Coinsetter on 03/04/23 10:59 UA Specific Conklin 1.030 Last Edit by Coinsetter on 03/04/23 10:59 UA Ketone Negative Last Edit by Coinsetter on 03/04/23 10:59 UA Bilirubin 0 mg/dL Last Edit by Coinsetter on 03/04/23 10:59 UA Glucose 0 mg/dL Last Edit by Coinsetter on 03/04/23 10:59 Results Reviewed Results Reviewed: Laboratory Last Values Urine pH (Auto) 5.5 03/04/23 10:50 Specific Conklin (Auto) 1.030 03/04/23 10:50 Urine Protein (Auto) 0 mg/dL 03/04/23 10:50 Glucose (UA)(Auto) 0 mg/dL 03/04/23 10:50 Urine Ketones (Auto) Negative 03/04/23 10:50 Urine Blood (Auto) 0 Dg/uL 03/04/23 10:50 Urine Nitrite (Auto) Negative 03/04/23 10:50 Urine Bilirubin (Auto) 0 mg/dL 03/04/23 10:50 Urine Urobilinogen (Auto) 0.2 mg/dL 03/04/23 10:50 Leukocyte Esterase (Auto) 0 Harish/uL 03/04/23 10:50 Assessment & Plan Assessment & Plan (1) Nocturia: Code(s): R35.1 - Nocturia (2) Enlarged prostate: Code(s): N40.0 - Benign prostatic hyperplasia without lower urinary tract symptoms (3) Urinary hesitancy due to benign prostatic hyperplasia: Code(s): N40.1 - Benign prostatic hyperplasia with lower urinary tract symptoms; R39.11 - Hesitancy of micturition Plan In office urinalysis results reviewed with the patient today; as noted above Recent PSA results reviewed with the patient today as noted above. Continue Terazosin as prescribed Start Finasteride as discussed and prescribed. Patient reports be happy with current voiding parameters; continue terazosin as discussed Patient otherwise denies any bothersome urinary issues or concerns. Follow-up in 6 months with PSA to be completed prior; or sooner with any issues, concerns, and or questions. Orders: Orders AMB Post Void Residual by ultrasound 03/04/23 N40.1 - Benign prostatic hyperplasia with lower urinary tract symptoms PSA,Total (Free>4and<10) 6 Months N40.1 - Benign prostatic hyperplasia with lower urinary tract symptoms Prostate Specific Antigen 03/03/23 N40.1 - Benign prostatic hyperplasia with lower urinary tract symptoms AMB Urinalysis Automated 03/04/23 Z13.9 - Encounter for screening, unspecified Patient Instructions: The patient had an opportunity to ask questions regarding the treatment plan. All questions were answered. Physical exam, labs, and imaging were discussed and reviewed in detail. As well as risks, benefits, and discussion of treatment choices. No major barriers to understanding were identified. The patient expressed understanding and agreement with the above treatment plan. The patient was made aware they should contact our office by phone for worsening of their current condition, the appearance of new symptoms, or with any questions or concerns. Compliance is encouraged with any medications and follow up testing that is ordered. It is a privilege to be allowed the opportunity to participate in? your urological care.? Again, if you have any questions or concerns If you have any questions or concerns please do not hesitate to contact me. The office is [phone]. This note is constructed using voice recognition software. While every effort has been made to ensure accuracy communication specialist errors may have been included. Yours sincerely, CUCA Cummings- Coding Level of Care Code Est Pt Level 3 (86135) Diagnoses Nocturia R35.1 Enlarged prostate N40.0 Urinary hesitancy due to benign prostatic hyperplasia N40.1; R39.11 CPT Codes Post Residual Void - PVR CPT Code: 11224-Enjz Void Residual by ultrasound ([id number])
== END 2023-03-04 11:04 | disposition home or self-care (01) ==
PROVIDERS: PCP Family Medicine; Visit Provider Nurse Practitioner Family
DX: N40.1 Benign prostatic hyperplasia with lower urinary tract symptoms (principal); R35.1 Nocturia; R39.11 Hesitancy of micturition
CPT/HCPCS: 99213

== ENCOUNTER → 2023-03-04 10:18 | Outpatient (BNVA) | payer MEDICARE, SELFPAY | PROVIDERS: Visit Provider Nurse Practitioner Family | DX: N40.1 Benign prostatic hyperplasia with lower urinary tract symptoms (principal); R35.1 Nocturia; R39.11 Hesitancy of micturition; Z79.899 Other long term (current) drug therapy | CPT/HCPCS: 51798; 81003; 99212 ==

== ENCOUNTER 2023-03-08 | Outpatient (REF) | payer MEDICARE, SELFPAY ==
[2023-03-08 11:57] LABS: Anion Gap 13 (12-20); Blood Urea Nitrogen 14 mg/dL (9-16); Calcium 9.2 mg/dL (8.4-10.2); Carbon Dioxide 25 mmol/L (22-29); Chloride 105 mmol/L (96-108); Cholesterol 134 mg/dL (<200); Estimated Glomerular Filt Rate > 60; Glucose Fasting 119 mg/dL (60-99); HDL Cholesterol 43 mg/dL (>40); LDL Cholesterol Calculated 78 mg/dL (<100); Potassium 4.2 mmol/L (3.3-5.1); Sodium 139 mmol/L (135-145); Triglycerides 69 mg/dL (<150)
== END 2023-03-08 00:01 | disposition home or self-care (01) ==
LOC: HO.WFDLDS
PROVIDERS: Nurse Practitioner Family; Visit Provider Family Medicine
DX: Z00.00 Encounter for general adult medical examination without abnormal findings (principal); E78.5 Hyperlipidemia, unspecified; N40.1 Benign prostatic hyperplasia with lower urinary tract symptoms; Z12.5 Encounter for screening for malignant neoplasm of prostate
CPT/HCPCS: 36415; 80048; 80061; 84153

== ENCOUNTER 2023-03-11 09:00 | Outpatient (RCR) | payer MEDICARE, SELFPAY | END 2023-06-22 13:15 | disposition home or self-care (01) | LOC: HO.PTWFD 09:00 | PROVIDERS: PCP Family Medicine; Visit Provider Physician Assistant | DX: Z98.890 Other specified postprocedural states (principal) | CPT/HCPCS: 97110; 97140; 97162 ==

== ENCOUNTER 2023-03-15 08:32 | Outpatient (AMB) | payer MEDICARE, SELFPAY ==
--- NOTE | 2023-03-15 08:37 | A.OFFPC_ITS ---
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 Had increased his artovastatin last office visit from 20mg to 40mg. He is followed by Urology for prostate enlargement. They had added finasteride and continued his terazosin 5mg. Labs were drawn 03/08/23. Reviewed labs with pt. Triglycerides 69. TC 134. LDL 78. HDL 43. A1c today 03/15/23 is 5.6%. He is on metformin 500mg daily. He continues seeing his eye doctor once a year. He notes he has not been exercising as much since his surgery in November. He does walk. [facility] Medical History No pertinent family history Surgical History Status post tendon reattachment History of cataract surgery History of hernia repair Family History Mother No problems noted. Father No problems noted. Social History Housing: Apartment Patient Tobacco Use Status: Former Tobacco user Quit Date: 1981 Tobacco use type: Cigarette Years Smoked: 12 years e-Cigarette/Vaping Use: Never Used Second Hand Smoke Exposure: No service: No Current occupational status: retired Current occupational exposures/hazards: No Cognitive needs: No Hearing needs: No Vision needs: No Questionnaire Thrive Questionnaire Date Thrive assessed: 04/10/21 MARCELINA-7 AMB Questionnaire MARCELINA-7 Date MARCELINA - 7 assessed: 04/01/22 Source: Developed by Drs. Tyler Loya, Diana Rios, Niko Hurst and colleagues, with an educational davi from [employer]. Review of Systems Const Denies chills, Denies fatigue, Denies fever(s), Denies headache(s) and Denies weakness ENT Denies dizziness and Denies headache(s) Card Denies chest pain, Denies lightheadedness, Denies dyspnea and Denies other (Palpitations) Resp Denies cough, Denies dyspnea, Denies wheezing and Denies other ( shortness of breath) Musc Denies numbness and Denies tingling Neuro Denies dizziness, Denies headache(s), Denies numbness, Denies tingling, Denies paresthesias and Denies weakness Psych Denies anxiety and Denies depression Endo Denies fatigue Aller/Immun Denies wheezing Physical exam (Primary Care) Vital Signs: Last Vital Signs Temp 97.1 F 03/15/23 08:38 Pulse 72 03/15/23 08:38 Resp 13 03/15/23 08:38 BP 134/70 03/15/23 08:38 Pulse Ox 99 03/15/23 08:38 Oxygen Delivery Method Room Air 03/15/23 08:38 BMI result Body Mass Index 26.1 Tobacco/Smoking Status: Tobacco use Status Tobacco use date assessed 12/10/22 03/15/23 08:39 Patient Tobacco Use Status Former Tobacco user 03/15/23 08:39 Tobacco use type Cigarette 03/15/23 08:39 e-Cigarette/Vaping Use Never Used 03/15/23 08:39 Thrive Assessment: Date of Thrive Assessment Date Thrive assessed 04/10/21 03/15/23 08:39 Const General: no acute distress and well developed Nutritional Appearance: well nourished Orientation/consciousness: patient oriented x3 HENMT Head: Yes normocephalic and Yes atraumatic Eyes General: appearance normal, both eyes and all related structures Pupils: Equal, round and reactive pupils present EOM: EOMs intact bilaterally Resp Effort & Inspection: normal respiratory effort Auscultation: clear to auscultation bilaterally Cardio Rate: regular rate Rhythm: regular rhythm Heart sounds: S1 normal heart sound present, S2 normal heart sound present, no gallops, no murmurs and no rubs Neuro General: patient oriented x3 and gait normal Cranial nerves: Yes Equal, round and reactive pupils present Psych Affect: normal affect Assessment and Plan Assessment & Plan (1) Diabetes: Code(s): E11.9 - Type 2 diabetes mellitus without complications Plan: A1c?has?risen?slightly?from?5.4%?to?5.6%.??Goal?is?less?than?7.0%; good?control. Patient?had?recent?shoulder?surgery?and?has?not?been?able?to?exercise?as?much?th ough?this?has?begun?to?improve?again. No?changes?to?current?regimen.??He?will?continue?to?work?on?a?diabetic?diet?and? increase?exercise?as?tolerated. We?discussed?that?if?he?is?able?to?bring?A1c?down?a?bit?more,?we?will?decrea se?his?medication. He?is?up-to-date?with?his?diabetic?eye?exam?and?has?his?next?appointment?in?[place]. (2) Hyperlipidemia: Code(s): E78.5 - Hyperlipidemia, unspecified Plan: LDL?has?improved?and?is?now?at?goal?of?less?than?100?for?a?patient?with?diabetes ,?after?increasing?atorvastatin?to?40?mg?daily Continue?current?medication?regimen (3) Enlarged prostate: Code(s): N40.0 - Benign prostatic hyperplasia without lower urinary tract symptoms Plan: Followed?by?urology. Urology?no?mentions?adding?finasteride?but?patient?has?not?received?this?so?I?se nt?it?for?him Follow-up?with?urology?as?recommended Orders: Orders Microalbumin, Random (w Creat) Today I10 - Essential (primary) hypertension Prostate Specific Antigen Scr Today Z12.5 - Encounter for screening for malignant neoplasm of prostate UA and rflx microscopic Today Z00.00 - Encounter for general adult medical examination without abnormal findings Comprehensive [place]. Panel Fast Today Z00.00 - Encounter for general adult med ical examination without abnormal findings Complete Blood Count Auto Diff Today Z00.00 - Encounter for general adult medical examination without abnormal findings Lipid Panel Today Z00.00 - Encounter for general adult medical examination without abnormal findings TSH reflex Free T4 Today Z00.00 - Encounter for general adult medical examination without abnormal findings Medications: Refilled finasteride 5 mg PO DAILY 90 tabs 3RF 90 days N40.1 - Benign prostatic hyperplasia with lower urinary tract symptoms, R33.9 - Retention of urine, unspecified Coding Level of Care Code Est Pt Level 4 (25658) Diagnoses Diabetes E11.9 Hyperlipidemia E78.5 Enlarged prostate N40.0
[2023-03-15 08:38] VITALS: BP 134/70; PULSE 72; RESP 13; TEMP 36.2; O2SAT 99; BMI 26.1
== END 2023-03-15 09:06 | disposition home or self-care (01) ==
PROVIDERS: PCP Family Medicine; Visit Provider Family Medicine
DX: E11.9 Type 2 diabetes mellitus without complications (principal); E78.5 Hyperlipidemia, unspecified; N40.0 Benign prostatic hyperplasia without lower urinary tract symptoms
CPT/HCPCS: 99214

== ENCOUNTER 2023-06-07 10:26 | Outpatient (REF) | payer MEDICARE, SELFPAY ==
[2023-06-07 13:43] LABS: MANUAL DIFF FLAG NO
[2023-06-07 13:47] LABS: Basophils Percent Auto 0.9 % (0-2); Eosinophils Absolute Auto 0.1 X10*3/uL (0.0-0.4); Eosinophils Percent Auto 3.1 % (0-4); Hematocrit 44.7 % (42.0-52.0); Hemoglobin 15.5 g/dl (14.0-18.0); Imm Gran Abs Auto 0.01 X10*3/uL (0.00-0.03); Imm Gran Pct Auto 0.2 % (0.0-0.4); Lymphocytes Absolute Auto 1.3 X10*3/uL (1.2-4.9); Mean Corpuscular HGB Conc 34.7 g/dl (31.0-36.0); Mean Corpuscular Hemoglobin 31.6 pg (27.0-33.0); Mean Platelet Volume 10.1 fL (9.4-12.4); Monocytes Absolute Auto 0.4 X10*3/uL (0.1-1.2); Monocytes Percent Auto 8.2 % (2-11); Neutrophils Absolute Auto 2.6 x10*3/uL (2.0-8.3); Neutrophils Percent Auto 58.6 % (45-73); Platelet Count 170 X10*3/uL (160-400); Red Blood Count 4.91 X10*6/uL (4.60-5.80); Red Cell Distribution Width 12.2 % (11.0-16.0); White Blood Count 4.5 X10*3/uL (4.8-10.8)
[2023-06-07 13:48] LABS: Appearance Urine Turbid; Color Urine Dark Yellow; Glucose Urine UA Negative (Negative); Leukocyte Esterase Urine Negative (Negative); Nitrite Urine Negative (Negative); Specific Gravity - Urine >= 1.030 (1.005-1.025); Urine Blood Negative (Negative); Urine Ketones Trace mg/dL (Negative); Urine Protein Negative (Neg-Trace)
[2023-06-07 14:13] LABS: Alanine Aminotransferase 33 U/L (0-40); Albumin Level 4.6 g/dL (3.5-5.0); Alkaline Phosphatase 64 U/L (39-117); Anion Gap 14 (12-20); Aspartate Amino Transferase 25 U/L (5-37); Bilirubin Total 1.1 mg/dL (0.0-1.0); Blood Urea Nitrogen 20 mg/dL (9-16); Calcium 9.8 mg/dL (8.4-10.2); Carbon Dioxide 27 mmol/L (22-29); Chloride 104 mmol/L (96-108); Cholesterol 161 mg/dL (<200); Estimated Glomerular Filt Rate > 60; Glucose Fasting 105 mg/dL (60-99); HDL Cholesterol 44 mg/dL (>40); LDL Cholesterol Calculated 101 mg/dL (<100); Potassium 4.4 mmol/L (3.3-5.1); Sodium 141 mmol/L (135-145); Total Protein 7.3 g/dL (6.5-8.0); Triglycerides 84 mg/dL (<150)
[2023-06-07 14:25] LABS: Creatinine Urine 196.87 mg/dL; Microalbum/Creatinine Ratio Ur 5.5 ug/mg cr (<30)
[2023-06-07 14:26] LABS: Prostate Specific Antigen Scr 2.09 ng/mL (<0.05-4.0)
[2023-06-07 14:29] LABS: TSH reflex Free T4 2.87 uIU/mL (0.32-4.0)
== END 2023-06-07 10:27 | disposition home or self-care (01) ==
LOC: HO.WFDLDS 10:26
PROVIDERS: Visit Provider Family Medicine
DX: Z00.00 Encounter for general adult medical examination without abnormal findings (principal); I10 Essential (primary) hypertension; Z12.5 Encounter for screening for malignant neoplasm of prostate
CPT/HCPCS: 36415; 80053; 80061; 81003; 82043; 82570; 84153; 84443; 85025

== ENCOUNTER 2023-06-14 09:59 | Outpatient (AMB) | payer MEDICARE, SELFPAY ==
[2023-06-14 10:03] VITALS: BP 112/68; PULSE 76; O2SAT 96; BMI 25.0
--- NOTE | 2023-06-14 10:03 | A.OFFPC_ITS ---
Vital Signs 06/14/23 10:03 Height 5 ft 6 in Weight 155 lb BMI 25.0 BP 112/68 Blood Pressure Location Lt brachial Position Sitting Pulse 76 Pulse Source Pulse Oximeter Pulse Oximetry (%) 96 Oxygen Delivery Method Room Air Intake Visit Reasons: CPE with f/u labs and health maint. Intake Note: Patient is here for his physical today. Patient would like refill of Terazosin Allergies No Known Allergies Allergy (Verified 06/14/23 10:07) Medication List - Last Reconciled 06/14/23 by Jose Luis Agiular MD ascorbic acid (vitamin C) 1 g PO DAILY aspirin 81 mg PO DAILY atorvastatin 40 mg PO BEDTIME 90 days cholecalciferol (vitamin D3) 25 mcg PO DAILY finasteride 5 mg PO DAILY 90 days levothyroxine 50 mcg PO DAILY 90 days magnesium 200 mg PO DAILY metformin 500 mg PO DAILY 90 days terazosin 5 mg PO BEDTIME 90 days Tobacco use date assessed: 12/10/22 Fall risk assessment: 1 Fall in past year Last assessed Fall Risk: 06/14/23 Dental Screening Dental Screen Date: 06/14/23 Did you have a dental visit in the last 12 months?: Yes Did you have a dental problem in the last 6 months where you did not have access to dental care?: No Was dental information given to patient?: Patient has dentist HPI CPE with f/u labs and health maint. HPI Details 72 y/o male presents for an extended exa m with f/u labs and health maintenance. Labs were drawn 06/07/23. Reviewed labs with pt. Elevated fasting glucose of 105. A1c today 06/14/23 is 5.4%. Triglycerides 84. TC 161. LDL 101. HDL 44. He is on artovastatin 40mg. Blood pressure today 112/68. [facility] Medical History No pertinent family history Surgical History Status post tendon reattachment History of cataract surgery History of hernia repair Family History Mother No problems noted. Father No problems noted. Social History Housing: Apartment Patient Tobacco Use Status: Former Tobacco user Quit Date: 1981 Tobacco use type: Cigarette Years Smoked: 12 years e-Cigarette/Vaping Use: Never Used Second Hand Smoke Exposure: No service: No Current occupational status: retired Current occupational exposures/hazards: No Cognitive needs: No Hearing needs: No Vision needs: No Questionnaire PHQ-9 Over the last 2 weeks, how often have you been bothered by any of the following problems? 1. Little interest or pleasure in doing things: not at all 2. Feeling down, depressed, or hopeless: not at all 3. Trouble falling or staying asleep, or sleeping too much: not at all 4. Feeling tired or having little energy: not at all 5. Poor appetite or overeating: not at all 6. Feeling bad about yourself - or that you are a failure or have let yourself or your family down: not at all 7. Trouble concentrating on things, such as reading the newspaper or watching television: not at all 8. Moving or speaking so slowly that other people could have noticed. Or the opposite - being so fidgety or restless that you have been moving around a lot more than usual: not at all 9. Thoughts that you would be better off or of hurting yourself in some way: not at all Total score: 0 Source: Developed by Drs. Tyler Loya, Diana Rios, Niko Hurst and colleagues, with an educational davi from [employer]. Thrive Questionnaire Date Thrive assessed: 04/10/21 I am a: Patient What is your living situation today?: I have a steady place to live Within the past 12 months, did the food you bought not last and you didn't have the money to get more?: Never true Within the past 12 months, did you worry whether your food would run out before you got money to buy more?: Never true Do you have trouble paying for medicines?: No Do you have trouble getting transportation to medical appointments?: No Do you have trouble paying your heating and electricity bill?: No Do you have trouble taking care of your child, family member or friend?: No Do you have trouble with day-to-day activities such as bathing, preparing meals, shopping, managing finances, etc.?: No Are you currently unemployed and looking for a job?: No Are you interested in more education?: No THRIVE Score: 0 AUDIT C Alcohol Use Questionnaire (AUDIT-C) 1. How often do you have a drink containing alcohol?: Monthly or less 2. How many drinks containing alcohol do you have on a typical day when you are drinking?: 1 or 2 3. How often do you have six or more drinks on one occasion?: Never Total Score: 1 MARCELINA-7 AMB Questionnaire MARCELINA-7 Date MARCELINA - 7 assessed: 06/14/23 Feeling nervous, anxious, or on edge: 0 = Not at all Not being able to stop or control worryin = Not at all Worrying too much about different things: 0 = Not at all Trouble relaxin = Not at all Being so restless that it is hard to sit still: 0 = Not at all Becoming easily annoyed or irritable: 0 = Not at all Feeling afraid as if something awful might happen: 0 = Not at all Total MARCELINA-7 score (0-4 normal; 5-9 mild; 10-14 moderate; 15-21 severe): 0 Source: Developed by Drs. Tyler Loya, Diana Rios, Niko Hurst and colleagues, with an educational davi from [employer]. Review of Systems Const Denies chills, Denies fatigue, Denies fever(s), Denies headache(s) and Denies weakness Eyes Denies change in vision ENT Denies dizziness, Denies headache(s), Denies hearing loss, Denies nasal congestion, Denies sinus pain, Denies sinus pressure and Denies sore throat Card Denies chest pain, Denies lightheadedness, Denies dyspnea and Denies other (palpitations) Resp Denies cough, Denies dyspnea and Denies wheezing GI Denies abdominal pain, Denies melena, Denies hematochezia, Denies change in bowel habits, Denies dyspepsia and Denies nausea Denies hematuria and Denies dysuria Musc Denies abnormal gait, Denies myalgias, Denies arthralgias, Denies numbness and Denies tingling Skin/Breast Denies rash, Denies unusual bruising and Denies wounds Neuro Denies abnormal gait, Denies dizziness, Denies headache(s), Denies memory loss, Denies numbness, Denies Sensory deficit (Neuro), Denies tingling and Denies weakness Psych Denies anxiety, Denies depression and Denies memory loss Endo Denies cold intolerance, Denies fatigue, Denies heat intolerance, Denies polydipsia and Denies polyuria Huang/Lymph Denies easy bleeding and Denies easy bruising Aller/Immun Denies wheezing Physical exam (Primary Care) Vital Signs: Last Vital Signs Pulse 76 06/14/23 10:03 BP 112/68 06/14/23 10:03 Pulse Ox 96 06/14/23 10:03 Oxygen Delivery Method Room Air 06/14/23 10:03 BMI result Body Mass Index 25.0 Tobacco/Smoking Status: Tobacco use Status Tobacco use date assessed 12/10/22 06/14/23 10:07 Patient Tobacco Use Status Former Tobacco user 06/14/23 10:07 Tobacco use type Cigarette 06/14/23 10:07 e-Cigarette/Vaping Use Never Used 06/14/23 10:07 PHQ-9: PHQ-9 Score PHQ-9: Total score 0 06/14/23 10:15 Thrive Assessment: Date of Thrive Assessment Date Thrive assessed 04/10/21 06/14/23 10:07 Const General: no acute distress, well developed, alert and awake Nutritional Appearance: well nourished Orientation/consciousness: patient oriented x3 HENMT Head: Yes normocephalic and Yes atraumatic Ears: hearing grossly normal bilaterally and TM's normal bilaterally General nose exam: Normal external nose present and Normal nares present Mouth: Normal oral and palatal mucosa present and moist mucous membranes Teeth and gingiva: dentition normal Throat: Yes posterior oropharynx normal Eyes General: appearance normal, both eyes and all related structures Pupils: Equal, round and reactive pupils present and Pupil accommodation reflex normal EOM: EOMs intact bilaterally Neck Neck: Yes normal visual inspection, Yes no lymphadenopathy and Yes trachea midline Thyroid: Thyroid normal Carotids: no bruits Lymphatic: no lymphadenopathy noted Chest Chest palpation & inspection: normal inspection of the chest Resp Effort & Inspection: normal respiratory effort Auscultation: clear to auscultation bilaterally Cardio Rate: regular rate Rhythm: regular rhythm Heart sounds: S1 normal heart sound present, S2 normal heart sound present, no gallops, no murmurs and no rubs Bruits: no abdominal aortic bruits and no carotid bruits GI Palpation (GI): No Abdominal aortic bruit present, Soft to palpation, nontender, No hepatosplenomegaly present and No Rebound tenderness present Auscultation: normal bowel sounds General: Yes no CVA tenderness Back/Spine/Pelvis Back: no CVA tenderness Cervical Spine: cervical ROM normal and No Cervical spine tenderness Thoracic/Lumbar Spine: thoraco-lumbar ROM normal, No pain with thoraco-lumbar ROM, No thoracic spinal tenderness and No lumbar spinal tenderness Skin Lesions: no lesions Rashes: no rashes Trauma: no lacerations or abrasions Wounds: no wounds Nails: normal Neuro General: patient oriented x3 Cranial nerves: Yes Equal, round and reactive pupils present Cognition (Neuro): normal cognition Gait exam (Neuro): Normal gait present Motor exam (neuro): 5/5 motor strength present throughout Sensory Exam: No Sensory deficit (Neuro) Deep tendon reflexes (DTR's): Right patellar reflex intensity grade: 2+ and Left patellar reflex intensity grade: 2+ Extrem General: Yes normal to inspection and No edema Psych Appearance: grossly normal Affect: normal affect Attitude: cooperative Thought process: Normal thought process present Results AMB Hemoglobin A1c 2 AMB Hemoglobin A1c 5.4 % Last Edit by Celina Batista CMA on 06/14/23 10:26 Assessment and Plan Assessment & Plan (1) Diabetes: Code(s): E11.9 - Type 2 diabetes mellitus without complications Plan: A1c 5.4% again today Will?decrease?metformin?from?500?mg?daily?to?250?mg?daily Follow-up?in?3?months (2) Hyperlipidemia: Code(s): E78.5 - Hyperlipidemia, unspecified Plan: LDL?cholesterol?slightly?above?goal?of?less?than?100?for?patient?with?diabetes Encouraged?a?diet?lower?in?saturated?fats?and?cholesterol Encouraged?exercise (3) Essential hypertension: Code(s): I10 - Essential (primary) hypertension Plan: Blood?pressure?is?well?controlled.??Goal?is?less?than?140/90 Continue?diet?and?exercise (4) Screening for colon cancer: Code(s): Z12.11 - Encounter for screening for malignant neoplasm of colon Plan: Due?for?5?year?follow-up [place] [place] (5) Screening for prostate cancer: Code(s): Z12.5 - Encounter for screening for malignant neoplasm of prostate Plan: PSA?within?normal?limits Will?continue?annual?screening (6) Adult general medical exam: Code(s): Z00.00 - Encounter for general adult medical examination without abnormal findings Plan: 72-year-old?male?presents?for?an?extended?exam Encouraged?healthy?diet?with?active?lifestyle?and?plenty?of?exercise Orders: Orders AMB Hemoglobin A1c Today Z13.9 - Encounter for screening, unspecified Referrals Gastroenterology Referral Z12.11 - Encounter for screening for malignant neoplasm of colon Medications: Changed From metformin 500 mg PO DAILY 90 days 90 tabs 2RF Z12.11 - Encounter for screening for malignant neoplasm of colon To metformin 250 mg (1/2 x 500 mg) PO DAILY 45 tabs 2RF 90 days Z12.11 - Encounter for screening for malignant neoplasm of colon Refilled terazosin 5 mg PO BEDTIME 90 days 90 caps 3RF N40.1 - Benign prostatic hyperplasia with lower urinary tract symptoms, R35.0 - Frequency of micturition Coding Level of Care Code Est Pt Level 4 (36735) Diagnoses Diabetes E11.9 Hyperlipidemia E78.5 Essential hypertension I10 Screening for colon cancer Z12.11 Screening for prostate cancer Z12.5 Adult general medical exam Z00.00
== END 2023-06-14 10:40 | disposition home or self-care (01) ==
PROVIDERS: PCP Family Medicine; Visit Provider Family Medicine
DX: Z00.00 Encounter for general adult medical examination without abnormal findings (principal); E11.69 Type 2 diabetes mellitus with other specified complication; E78.5 Hyperlipidemia, unspecified; I10 Essential (primary) hypertension; Z12.11 Encounter for screening for malignant neoplasm of colon; Z12.5 Encounter for screening for malignant neoplasm of prostate
CPT/HCPCS: 83036; 99214; 99397

== ENCOUNTER → 2023-08-25 09:05 | Outpatient (BNVA) | payer MEDICARE, SELFPAY | PROVIDERS: PCP Family Medicine; Visit Provider Physician Assistant ==

== ENCOUNTER 2023-09-03 09:28 | Outpatient (AMB) | payer MEDICARE, SELFPAY ==
--- NOTE | 2023-09-03 09:46 | MHC.OFFVIS ---
Intake Intake Visit Reasons: 6m/PSA/PVR Intake Note: Patient is present for follow up labs/elevated psa PSA: 2.09 Urology Medications: terazosin, finasteride Blood Thinner: aspirin PVR: 28ml's [place] Required: No Accompanied by: Self / Same As Patient Allergies No Known Allergies Allergy (Verified 09/03/23 10:06) Medication List - Last Reconciled 09/03/23 by CUCA Cummings-HALEY ascorbic acid (vitamin C) 1 g PO DAILY aspirin 81 mg PO DAILY atorvastatin 40 mg PO BEDTIME 90 days bisacodyl (Dulcolax (bisacodyl)) 20 mg (4 x 5 mg) PO ONCE PRN 1 day cholecalciferol (vitamin D3) 25 mcg PO DAILY finasteride 5 mg PO DAILY 90 days levothyroxine 50 mcg PO DAILY 90 days magnesium 200 mg PO DAILY metformin 250 mg (1/2 x 500 mg) PO DAILY 90 days polyethylene glycol 3350 (Miralax) 238 grams PO ONCE PRN 1 day terazosin 5 mg PO BEDTIME 90 days HPI HPI Comments History of Present Illness Details Luis Carlos is a pleasant 73 year-old male patient of Dr. Aguilar. He has a past medical history of hypothyroidism, elevated PSA, and hyperlipidemia. He presents to the office today for a follow up of his elevated PSA. Recent PSA results reviewed with the patient today. PSAs are as follows: 06/13 3.2, 06/15 4.9, 09/13 3.5, 03/15 3.5, 06/16 2.1 Previous workup has included a retroperitoneal ultrasound noting bilateral kidneys normal in size, contour, and echogenicity. There are no renal calculi or hydronephrosis bilaterally. There are bilateral cysts in the mid pole to upper pole of each kidney. The bladder is well distended and normal. The prostate gland is enlarged measuring approximately 50 mL. Patient with a previous history of prostate biopsy with [facility] with Dr. Martino and biopsy was negative. He states the biopsy was approximately 3 years ago. When asked patient does report a family history of prostate cancer. He reports father and brother both have had prostate cancer. In discussion with the patient today regarding his urination he reports compliance with terazosin and finasteride 5 mg daily. Reports to be happy with his current voiding parameters. He discusses feeling episodes of nocturia have significantly decreased. He does continue with intermittent episodes of urinary frequency throughout the day however does not find them bothersome as they are infrequent. He discusses recently getting labradoodle. In office urinalysis results reviewed with the patient today. PVR 28 mL. He otherwise denies incontinence, hematuria, dysuria, foul smelling urine, changes to urinary stream, flank pain, fever, and or chills. He otherwise offers no other issues or concerns at this time. [facility] Medical History No pertinent family history Surgical History Status post tendon reattachment History of cataract surgery History of hernia repair Family History Mother Multiple myeloma Father Prostate CA Brother Prostate CA Social History Housing: Apartment Patient Tobacco Use Status: Former Tobacco user Quit Date: 1981 Tobacco use type: Cigarette Years Smoked: 12 years e-Cigarette/Vaping Use: Never Used Second Hand Smoke Exposure: No service: No Current occupational status: retired Current occupational exposures/hazards: No Cognitive needs: No Hearing needs: No Vision needs: No Review of Systems Const Reports no additional complaints Eyes Reports no additional complaints ENT Reports no additional complaints Card Reports as per HPI Resp Reports no additional complaints GI Reports no additional complaints Reports as per HPI Musc Reports no additional complaints Neuro Reports no additional complaints Psych Reports no additional complaints Endo Details: Patient reports being diagnosed with diabetes however is now more well controlled with metformin and diet control as well as exercise. Reports as per HPI Huang/Lymph Reports no additional complaints Aller/Immun Reports no additional complaints Physical Exam Const General: cooperative, healthy appearing, comfortable, no acute distress, well developed, alert and awake Nutritional Appearance: average body habitus Orientation/consciousness: patient oriented x3 Limitations: no limitations HEENT Head: Yes normal to inspection, Yes normocephalic and Yes atraumatic Ears: hearing grossly normal bilaterally Eyes General: appearance normal, both eyes and all related structures Neck Neck: Yes normal visual inspection and Yes trachea midline Chest Chest palpation & inspection: normal inspection of the chest Resp Effort & Inspection: normal respiratory effort and able to speak in complete sentences Cardio Rate: regular rate GI Inspection: Yes normal to inspection General: Yes no CVA tenderness Back/Spine/Pelvis Back: no CVA tenderness Skin General skin exam: no rashes or lesions noted Neuro General: patient oriented x3 Extrem General: Yes normal to inspection Psych Appearance: grossly normal and well kempt Mental Status: mental status grossly normal Speech and movement: Normal speech and movement present and Clear speech present Affect: normal affect Attitude: cooperative Thought process: Normal thought process present Thought content: Normal thought content present Insight: Good insight present (Psych) Judgement: Good judgement present (Psych) Office Procedures Post Void Residual Post Residual Void Post Void Residual (PVR): 28 [id number] Void Residual by ultrasound Results AMB Urinalysis, Automated UA Leukoctes 0 Harish/uL Last Edit by [employer] on 09/03/23 09:55 UA Nitrite Negative Last Edit by [employer] on 09/03/23 09:55 UA Urobilinogen 0.2 mg/dL Last Edit by [employer] on 09/03/23 09:55 UA Protein 0 mg/dL Last Edit by [employer] on 09/03/23 09:55 UA pH 5.5 Last Edit by [employer] on 09/03/23 09:55 UA Blood 0 Dg/uL Last Edit by [employer] on 09/03/23 09:55 UA Specific [place] 1.025 Last Edit by [employer] on 09/03/23 09:55 UA Ketone Negative Last Edit by [employer] on 09/03/23 09:55 UA Bilirubin 0 mg/dL Last Edit by [employer] on 09/03/23 09:55 UA Glucose 0 mg/dL Last Edit by [employer] on 09/03/23 09:55 Results Reviewed Results Reviewed: Laboratory Last Values Urine pH (Auto) 5.5 09/03/23 09:48 Specific [place] (Auto) 1.025 09/03/23 09:48 Urine Protein (Auto) 0 mg/dL 09/03/23 09:48 Glucose (UA)(Auto) 0 mg/dL 09/03/23 09:48 Urine Ketones (Auto) Negative 09/03/23 09:48 Urine Blood (Auto) 0 Dg/uL 09/03/23 09:48 Urine Nitrite (Auto) Negative 09/03/23 09:48 Urine Bilirubin (Auto) 0 mg/dL 09/03/23 09:48 Urine Urobilinogen (Auto) 0.2 mg/dL 09/03/23 09:48 Leukocyte Esterase (Auto) 0 Harish/uL 09/03/23 09:48 Assessment & Plan Assessment & Plan (1) Enlarged prostate with lower urinary tract symptoms (LUTS): Code(s): N40.1 - Benign prostatic hyperplasia with lower urinary tract symptoms (2) Enlarged prostate: Code(s): N40.0 - Benign prostatic hyperplasia without lower urinary tract symptoms Plan In office urinalysis results reviewed with the patient today; as noted above. PVR 28ml's. Continue finasteride and terazosin 5 mg daily as prescribed. Patient currently denies any bothersome urinary issues or concerns. Recent PSA results reviewed with the patient today; as noted above. He is happy with his current voiding parameters. Discussed bladder triggers/irritants. Will obtain PSA in 6 months. Follow-up in 6 months with lab to be completed prior; or sooner with any issues, concerns, and or questions. Orders: Orders Prostate Specific Antigen 6 Months N40.0 - Benign prostatic hyperplasia without lower urinary tract symptoms, N40.1 - Benign prostatic hyperplasia with lower urinary tract symptoms AMB Urinalysis Automated 09/03/23 Z13.9 - Encounter for screening, unspecified AMB Post Void Residual by ultrasound 09/03/23 N40.1 - Benign prostatic hyperplasia with lower urinary tract symptoms, R39.11 - Hesitancy of micturition Patient Instructions: The patient had an opportunity to ask questions regarding the treatment plan. All questions were answered. Physical exam, labs, and imaging were discussed and reviewed in detail. As well as risks, benefits, and discussion of treatment choices. No major barriers to understanding were identified. The patient expressed understanding and agreement with the above treatment plan. The patient was made aware they should contact our office by phone for worsening of their current condition, the appearance of new symptoms, or with any questions or concerns. Compliance is encouraged with any medications and follow up testing that is ordered. It is a privilege to be allowed the opportunity to participate in? your urological care.? Again, if you have any questions or concerns If you have any questions or concerns please do not hesitate to contact me. The office is [phone]. This note is constructed using voice recognition software. While every effort has been made to ensure accuracy seat cover maker errors may have been included. Yours sincerely, CUCA Cummings-HALEY Coding Level of Care Code Est Pt Level 3 (49726) Diagnoses Enlarged prostate with lower urinary tract symptoms (LUTS) N40.1 Enlarged prostate N40.0 CPT Codes Post Residual Void - PVR CPT Code: 92030-Vxkb Void Residual by ultrasound ([id number])
== END 2023-09-03 10:09 | disposition home or self-care (01) ==
PROVIDERS: PCP Family Medicine; Visit Provider Nurse Practitioner Family
DX: Z13.9 Encounter for screening, unspecified (principal)
CPT/HCPCS: 99213

== ENCOUNTER → 2023-09-03 09:28 | Outpatient (BNVA) | payer MEDICARE, SELFPAY | PROVIDERS: PCP Family Medicine; Visit Provider Nurse Practitioner Family | DX: N40.0 Benign prostatic hyperplasia without lower urinary tract symptoms (principal) | CPT/HCPCS: 51798; 81003; 99212 ==

== ENCOUNTER 2023-09-13 10:40 | Outpatient (AMB) | payer MEDICARE, SELFPAY ==
--- NOTE | 2023-09-13 10:46 | A.OFFPC_ITS ---
Vital Signs 09/13/23 10:49 Height 5 ft 6 in Weight 160 lb BMI 25.8 BP 126/70 Blood Pressure Location Rt brachial Position Sitting Respiration 14 Pulse 65 Pulse Source Pulse Oximeter Pulse Oximetry (%) 97 Oxygen Delivery Method Room Air Intake Visit Reasons: f/u diabetes Book Critic Required: No Allergies No Known Allergies Allergy (Verified 09/13/23 10:47) Medication List - Last Reconciled 09/13/23 by Jose Luis Aguilar MD ascorbic acid (vitamin C) 1 g PO DAILY aspirin 81 mg PO DAILY atorvastatin 40 mg PO BEDTIME 90 days cholecalciferol (vitamin D3) 25 mcg PO DAILY finasteride 5 mg PO DAILY 90 days levothyroxine 50 mcg PO DAILY 90 days magnesium 200 mg PO DAILY metformin 250 mg (1/2 x 500 mg) PO DAILY 90 days polyethylene glycol 3350 (Miralax) 238 grams PO ONCE PRN 1 day terazosin 5 mg PO BEDTIME 90 days Tobacco use date assessed: 09/13/23 Fall risk assessment: No Falls in past year Last assessed Fall Risk: 09/13/23 Dental Screening Dental Screen Date: 09/13/23 Did you have a dental visit in the last 12 months?: Yes Did you have a dental problem in the last 6 months where you did not have access to dental care?: No Was dental information given to patient?: Patient has dentist HPI f/u diabetes HPI Details 73 y/o male presents to /u diabetes. Last A1c 06/14/23 5.4%. A1c today 09/13/23 5.8%. Had decreased metformin from 500mg daily to 250mg daily. Diabetic eye exam 04/22/23 showed no diabetic retinopathy. [facility] Medical History No pertinent family history Surgical History Status post tendon reattachment History of cataract surgery History of hernia repair Family History Mother Multiple myeloma Father Prostate CA Brother Prostate CA Social History Housing: Apartment Patient Tobacco Use Status: Former Tobacco user Quit Date: 1981 Tobacco use type: Cigarette Years Smoked: 12 years e-Cigarette/Vaping Use: Never Used Second Hand Smoke Exposure: No service: No Current occupational status: retired Current occupational exposures/hazards: No Cognitive needs: No Hearing needs: No Vision needs: No Questionnaire Thrive Questionnaire Date Thrive assessed: 04/10/21 AUDIT C Alcohol Use Questionnaire (AUDIT-C) 1. How often do you have a drink containing alcohol?: Monthly or less 2. How many drinks containing alcohol do you have on a typical day when you are drinking?: 1 or 2 3. How often do you have six or more drinks on one occasion?: Never Total Score: 1 MARCELINA-7 AMB Questionnaire MARCELINA-7 Date MARCELINA - 7 assessed: 06/14/23 Source: Developed by Drs. Tyler Loya, Diana Rios, Niko Hurst and colleagues, with an educational davi from [employer]. Physical exam (Primary Care) Vital Signs: Last Vital Signs Pulse 65 09/13/23 10:49 Resp 14 09/13/23 10:49 BP 126/70 09/13/23 10:49 Pulse Ox 97 09/13/23 10:49 Oxygen Delivery Method Room Air 09/13/23 10:49 BMI result Body Mass Index 25.8 Tobacco/Smoking Status: Tobacco use Status Tobacco use date assessed 09/13/23 09/13/23 10:56 Patient Tobacco Use Status Former Tobacco user 09/13/23 10:46 Tobacco use type Cigarette 09/13/23 10:46 e-Cigarette/Vaping Use Never Used 09/13/23 10:46 Thrive Assessment: Date of Thrive Assessment Date Thrive assessed 04/10/21 09/13/23 10:46 Results AMB Hemoglobin A1c AMB Hemoglobin A1c 5.8 % Last Edit by Jazmine David CMA on 09/13/23 11:04 Results Reviewed Results Reviewed: Laboratory Last Values Hgb A1c (Clinic) 5.8 % (4.0-6.0) 09/13/23 11:00 Assessment and Plan Assessment & Plan (1) Diabetes: Code(s): E11.9 - Type 2 diabetes mellitus without complications Plan: Still?has?good?control?of?fasting?blood?sugars?despite?decreasing?metformin. Would?like?to?trial?discontinuing?metformin?and?controlling?diabetes?just?with?a ?diabetic?diet. Stop?metformin Continue?diet?low?in?sugars?and?starches.??Continue?weight?control?and?exercise Will?follow-up?in?3?months (2) Hyperlipidemia: Code(s): E78.5 - Hyperlipidemia, unspecified Plan: LDL?cholesterol?was?slightly?above?goal?of?less?than?100?at?last?lab?check. He?is?on?atorvastatin?40?mg?daily.??No?medication?changes?made?today Will?repeat?labs?prior?to?his?next?visit?and?follow-up Orders: Orders AMB Hemoglobin A1c Today E11.9 - Type 2 diabetes mellitus without complications Comprehensive [place]. Panel Fast Today E78.5 - Hyperlipidemia, unspecified, Z00.00 - Encounter for general adult medical examination without abnormal findings Lipid Panel Today E78.5 - Hyperlipidemia, unspecified, Z00.00 - Encounter for general adult medical examination without abnormal findings Coding Level of Care Code Est Pt Level 3 (96423) Diagnoses Diabetes E11.9 Hyperlipidemia E78.5
[2023-09-13 10:49] VITALS: BP 126/70; PULSE 65; RESP 14; O2SAT 97; BMI 25.8
== END 2023-09-13 11:21 | disposition home or self-care (01) ==
LOC: HO.HMGFM 10:40
PROVIDERS: PCP Family Medicine; Visit Provider Family Medicine
DX: E11.9 Type 2 diabetes mellitus without complications (principal); E78.5 Hyperlipidemia, unspecified
CPT/HCPCS: 83036; 99213

== ENCOUNTER 2023-11-29 15:47 | Outpatient (AMB) | payer MEDICARE, SELFPAY ==
--- NOTE | 2023-11-29 15:53 | A.OFFPC_ITS ---
Vital Signs 11/29/23 15:55 Height 5 ft 6 in Weight 156 lb 3 oz BMI 25.2 BP 107/58 L Blood Pressure Location Lt brachial Position Sitting Pulse 78 Pulse Source Pulse Oximeter Temp 98.2 F Temp Source Oral Pulse Oximetry (%) 98 Oxygen Delivery Method Room Air Intake Visit Reasons: est/hdf fell on rock Intake Note: Patient is here for follow up after fall on 11/18. Fell and hit his head on a rock. Allergies No Known Allergies Allergy (Verified 11/29/23 15:56) Tobacco use date assessed: 11/29/23 Fall risk assessment: 1 Fall in past year Last assessed Fall Risk: 11/29/23 Dental Screening Dental Screen Date: 09/13/23 Did you have a dental visit in the last 12 months?: Yes Did you have a dental problem in the last 6 months where you did not have access to dental care?: No Was dental information given to patient?: Patient has dentist HPI HPI Comments History of Present Illness Details This is a 73-year-old male with a past medical history of type 2 diabetes, BPH, hyperlipidemia, hypothyroidism and hypertension presenting for ER follow up. Patient suffered a head injury on 11/19/2023. He was [place] 8-month-old dog [place] he accidentally lost his balance stepping on unsettled ground and fell to his left side hitting his head on a rock. He did not lose consciousness. He was able to get up, but he felt stunned and unbalanced. He went back to his vehicle on foot and drove himself home. His friend took him to the hospital. He reported a mild headache at the ER. Denied being on blood thinners, but he does take aspirin daily. Noncontrast head and neck CT showed no acute injuries. Incidental multilevel degenerative changes were noted in the cervical spine. He had a small abrasion on the left scalp that did not require repair. Patient was diagnosed with a concussion. Patient says he is doing well since then. He has mild headaches intermittently and will occasionally feel off balance. He also notes that when he is sleeping he wakes up more frequently and has a harder time getting back to bed. Last night he tried melatonin, and this worked well. He is walking his dog again on even surfaces. Denies increased symptoms with physical activity or when he uses screens. Patient is retired. No prior history of head trauma or concussion. ROS: Constitutional: No unexplained weight loss, fever, chills, fatigue or night sweats. Eyes: No vision changes, blurry vision, double vision. Gastrointestinal: No anorexia, nausea, vomiting. Neurologic: No LOC, syncope, memory loss, seizures, tremors, unilateral weakness, ataxia, numbness or tingling in the extremities. Musculoskeletal: No neck or shoulder pain Psychiatric: No depression or anxiety. Physical exam: Constitutional: Alert, in no distress. Eyes: Pupils are equal, round and reactive to light. Extraocular muscles intact. Respiratory: Clear to auscultation. Cardiovascular: S1 S2 regular. No murmurs. Neurologic:?Alert and oriented x 3, no focal deficits observed, CN 2-12 intact, [id number] normal, sensation equal and symmetric, strength UE and LE 5/5 bilaterally, reflexes equal and symmetric.? Normal gait.? Patient able to heel walk, toe walk and walk heel-to-toe across the floor.? No pronator drift.? Negative Romberg. Skin: healed superficial abrasion on left side of the scalp Musculoskeletal: No gross deformities. Normal range of motion. Psychiatric: Normal mood and affect [facility] Medical History No pertinent family history Surgical History Status post tendon reattachment History of cataract surgery History of hernia repair Family History Mother Multiple myeloma Father Prostate CA Brother Prostate CA Social History Housing: Apartment Patient Tobacco Use Status: Former Tobacco user Tobacco use type: Cigarette Years Smoked: 12 years e-Cigarette/Vaping Use: Never Used Second Hand Smoke Exposure: No service: No Current occupational status: retired Current occupational exposures/hazards: No Cognitive needs: No Hearing needs: No Vision needs: No Questionnaire Thrive Questionnaire Date Thrive assessed: 04/10/21 MARCELINA-7 AMB Questionnaire MARCELINA-7 Date MARCELINA - 7 assessed: 06/14/23 Source: Developed by Drs. Tyler Loya, Niko Carmona nd colleagues, with an educational davi from [employer]. Physical exam (Primary Care) Vital Signs: Last Vital Signs Temp 98.2 F 11/29/23 15:55 Pulse 78 11/29/23 15:55 BP 107/58 L 11/29/23 15:55 Pulse Ox 98 11/29/23 15:55 Oxygen Delivery Method Room Air 11/29/23 15:55 BMI result Body Mass Index 25.2 Tobacco/Smoking Status: Tobacco use Status Tobacco use date assessed 11/29/23 11/29/23 16:01 Patient Tobacco Use Status Former Tobacco user 11/29/23 15:54 Tobacco use type Cigarette 11/29/23 15:54 e-Cigarette/Vaping Use Never Used 11/29/23 15:54 Thrive Assessment: Date of Thrive Assessment Date Thrive assessed 04/10/21 11/29/23 15:54 Assessment and Plan Assessment & Plan (1) Post concussion syndrome: Code(s): F07.81 - Postconcussional syndrome Plan: Patient offered PT referral for vestibular rehab, but since his symptoms are mild and improving he deferred this. Advised patient to stay well hydrated and get adequate sleep. He plans to continue the melatonin short term as needed for sleep difficulty following the injury. This is okay to do. Discussed risk of 2nd impact syndrome. Advised patient to avoid high-risk activities including biking, hiking and walking on uneven terrain. He should not resume normal activities until he is completely symptom free without medications. We discussed that for most people postconcussive symptoms resolve within 30 days of head injury. In some cases symptoms can be prolonged. The patient has a physical scheduled with his PCP later this month for follow up. He will contact the office if he has any questions or concerns. Coding Level of Care Code Est Pt Level 4 (16591) Complex EM visit Add On G2211 Diagnoses Post concussion syndrome F07.81
[2023-11-29 15:55] VITALS: BP 107/58; PULSE 78; TEMP 36.8; O2SAT 98; BMI 25.2
== END 2023-11-29 16:25 | disposition home or self-care (01) ==
PROVIDERS: PCP Family Medicine; Visit Provider Physician Assistant Medical
DX: R51.9 Headache, unspecified (principal); F07.81 Postconcussional syndrome
CPT/HCPCS: 99214; G2211

== ENCOUNTER 2023-12-06 09:07 | Outpatient (REF) | payer MEDICARE, SELFPAY ==
[2023-12-06 11:51] LABS: Alanine Aminotransferase 24 U/L (0-40); Albumin Level 4.4 g/dL (3.5-5.0); Alkaline Phosphatase 60 U/L (39-117); Anion Gap 12 (12-20); Aspartate Amino Transferase 25 U/L (5-37); Bilirubin Total 1.1 mg/dL (0.0-1.0); Blood Urea Nitrogen 19 mg/dL (9-16); Calcium 8.9 mg/dL (8.4-10.2); Carbon Dioxide 25 mmol/L (22-29); Chloride 107 mmol/L (96-108); Cholesterol 137 mg/dL (<200); Estimated Glomerular Filt Rate > 60; Glucose Fasting 94 mg/dL (60-99); HDL Cholesterol 45 mg/dL (>40); LDL Cholesterol Calculated 81 mg/dL (<100); Potassium 4.1 mmol/L (3.3-5.1); Sodium 140 mmol/L (135-145); Total Protein 6.8 g/dL (6.5-8.0); Triglycerides 56 mg/dL (<150)
== END 2023-12-06 09:08 | disposition home or self-care (01) ==
LOC: HO.WFDLDS 09:07
PROVIDERS: Visit Provider Family Medicine
DX: Z00.00 Encounter for general adult medical examination without abnormal findings (principal); E78.5 Hyperlipidemia, unspecified
CPT/HCPCS: 36415; 80053; 80061

== ENCOUNTER 2023-12-13 10:40 | Outpatient (AMB) | payer MEDICARE, SELFPAY ==
--- NOTE | 2023-12-13 10:44 | A.OFFPC_ITS ---
Vital Signs 12/13/23 10:45 Height 5 ft 6 in Weight 161 lb 6 oz BMI 26.0 BP 124/68 Blood Pressure Location Rt brachial Position Sitting Pulse 81 Pulse Source Pulse Oximeter Pulse Oximetry (%) 98 Oxygen Delivery Method Room Air Intake Visit Reasons: f/u diabetes Intake Note: Luis Carlos is a 73 year old male who presents to the office today for a follow up diabetes visit. Pt states he is feeling well. A1C done in office today. Allergies No Known Allergies Allergy (Verified 12/13/23 10:47) Medication List - Last Reconciled 12/13/23 by Jose Luis Aguilar MD ascorbic acid (vitamin C) 1 g PO DAILY aspirin 81 mg PO DAILY atorvastatin 40 mg PO BEDTIME 90 days cholecalciferol (vitamin D3) 25 mcg PO DAILY finasteride 5 mg PO DAILY 90 days levothyroxine 50 mcg PO DAILY 90 days magnesium 200 mg PO DAILY polyethylene glycol 3350 (Miralax) 238 grams PO ONCE PRN 1 day terazosin 5 mg PO BEDTIME 90 days Tobacco use date assessed: 11/29/23 Dental Screening Dental Screen Date: 09/13/23 Did you have a dental visit in the last 12 months?: Yes Did you have a dental problem in the last 6 months where you did not have access to dental care?: No Was dental information given to patient?: Patient has dentist HPI f/u diabetes HPI Details 73 y/o male presents to f/u diet-control led diabetes and hyperlipidemia. Labs were drawn 12/06/23. Reviewed labs with pt. Triglycerides 56. TC 137. LDL 81. HDL 45. He is on artovastatin 40mg. A1c today 12/13/23 is 5.9%. Blood pressure today 124/68. HPI Comments History of Present Illness Details Documentation assistance for Jose Luis Aguilar MD, was provided by Bin Salazar, Political Scientist on 12/13/2023 at 11:01 AM JULIÁN. I, Dr. Aguilar, have read, observed, and verified documentation. FORMERLY [facility], [facility]–1983 Medical History No pertinent family history Surgical History Status post tendon reattachment History of cataract surgery History of hernia repair Family History Mother Multiple myeloma Father Prostate CA Brother Prostate CA Social History Housing: Apartment Patient Tobacco Use Status: Former Tobacco user Tobacco use type: Cigarette Years Smoked: 12 years e-Cigarette/Vaping Use: Never Used Second Hand Smoke Exposure: No service: No Current occupational status: retired Current occupational exposures/hazards: No Cognitive needs: No Hearing needs: No Vision needs: No Questionnaire PHQ-9 Over the last 2 weeks, how often have you been bothered by any of the following problems? 1. Little interest or pleasure in doing things: not at all 2. Feeling down, depressed, or hopeless: not at all 3. Trouble falling or staying asleep, or sleeping too much: not at all 4. Feeling tired or having little energy: not at all 5. Poor appetite or overeating: not at all 6. Feeling bad about yourself - or that you are a failure or have let yourself or your family down: not at all 7. Trouble concentrating on things, such as reading the newspaper or watching television: not at all 8. Moving or speaking so slowly that other people could have noticed. Or the opposite - being so fidgety or restless that you have been moving around a lot more than usual: not at all 9. Thoughts that you would be better off or of hurting yourself in some way: not at all Total score: 0 Source: Developed by Drs. Tyler Loya, Diana Rios, Niko Hurst and colleagues, with an educational davi from [employer]. Thrive Questionnaire Date Thrive assessed: 12/13/23 I am a: Patient What is your living situation today?: I have a steady place to live Within the past 12 months, did the food you bought not last and you didn't have the money to get more?: Never true Within the past 12 months, did you worry whether your food would run out before you got money to buy more?: Never true Do you have trouble paying for medicines?: No Do you have trouble getting transportation to medical appointments?: No Do you have trouble paying your heating and electricity bill?: No Do you have trouble taking care of your child, family member or friend?: No Do you have trouble with day-to-day activities such as bathing, preparing meals, shopping, managing finances, etc.?: No Are you currently unemployed and looking for a job?: No Are you interested in more education?: No THRIVE Score: 0 AUDIT C Alcohol Use Questionnaire (AUDIT-C) 1. How often do you have a drink containing alcohol?: Monthly or less 2. How many drinks containing alcohol do you have on a typical day when you are drinking?: 1 or 2 3. How often do you have six or more drinks on one occasion?: Never Total Score: 1 MARCELINA-7 AMB Questionnaire MARCELINA-7 Date MARCELINA - 7 assessed: 06/14/23 Feeling nervous, anxious, or on edge: 0 = Not at all Not being able to stop or control worryin = Not at all Worrying too much about different things: 0 = Not at all Trouble relaxin = Not at all Being so restless that it is hard to sit still: 0 = Not at all Becoming easily annoyed or irritable: 0 = Not at all Feeling afraid as if something awful might happen: 0 = Not at all Total MARCELINA-7 score (0-4 normal; 5-9 mild; 10-14 moderate; 15-21 severe): 0 Source: Developed by Drs. Tyler Loya, Diana Rios, Niko Hurst and colleagues, with an educational davi from [employer]. Review of Systems Const Denies chills, Denies fatigue, Denies fever(s), Denies headache(s) and Denies weakness ENT Denies dizziness and Denies headache(s) Card Denies dyspnea Resp Denies cough, Denies dyspnea, Denies wheezing and Denies other (shortness of breath) Musc Denies numbness and Denies tingling Neuro Denies dizziness, Denies headache(s), Denies numbness, Denies tingling and Denies weakness Psych Denies anxiety and Denies depression Endo Denies fatigue Aller/Immun Denies wheezing Physical exam (Primary Care) Vital Signs: Last Vital Signs Pulse 81 12/13/23 10:45 BP 124/68 12/13/23 10:45 Pulse Ox 98 12/13/23 10:45 Oxygen Delivery Method Room Air 12/13/23 10:45 BMI result Body Mass Index 26.0 Tobacco/Smoking Status: Tobacco use Status Tobacco use date assessed 11/29/23 12/13/23 10:50 Patient Tobacco Use Status Former Tobacco user 12/13/23 10:50 Tobacco use type Cigarette 12/13/23 10:50 e-Cigarette/Vaping Use Never Used 12/13/23 10:50 PHQ-9: PHQ-9 Score PHQ-9: Total score 0 12/13/23 10:51 Thrive Assessment: Date of Thrive Assessment Date Thrive assessed 12/13/23 12/13/23 10:50 Const General: well developed; No acute distress Nutritional Appearance: well nourished Orientation/consciousness: patient oriented x3 HENMT Head: Yes normocephalic and Yes atraumatic Eyes General: appearance normal, both eyes and all related structures Pupils: Equal, round and reactive pupils present EOM: EOMs intact bilaterally Resp Effort & Inspection: normal respiratory effort Auscultation: clear to auscultation bilaterally Cardio Rate: regular rate Rhythm: regular rhythm Heart sounds: S1 normal heart sound present, S2 normal heart sound present, no gallops, no murmurs and no rubs Neuro General: patient oriented x3 and gait normal Cranial nerves: Yes Equal, round and reactive pupils present Psych Affect: normal affect Results AMB Hemoglobin A1c AMB Hemoglobin A1c 5.9 % Last Edit by Ania Lawson CMA on 12/13/23 11:00 Assessment and Plan Assessment & Plan (1) Diabetes: Code(s): E11.9 - Type 2 diabetes mellitus without complications Plan: Had?stopped?his?metformin?at?last?visit?after?decreasing?it?without?loss?sugar?c ontrol. A1c?today: ?5.9%.??Good?control.??Goal?is?less?than?7.0% Maintain?diet?control?of?diabetes?with?a?diet?low?in?sugars?and?starches, weight?control?and?exercise. Diabetic?eye?exam?in?March?showed?no?diabetic?retinopathy.??Up-to-date (2) Hyperlipidemia: Code(s): E78.5 - Hyperlipidemia, unspecified Plan: Lipids?are?well?controlled?and?LDL?cholesterol?is?at?goal?of?less?than?100 Continue?current?medication (3) Essential hypertension: Code(s): I10 - Essential (primary) hypertension Plan: Controlled. Orders: Orders AMB Hemoglobin A1c Today E11.9 - Type 2 diabetes mellitus without complications Complete Blood Count Auto Diff 4 Months N40.1 - Benign prostatic hyperplasia with lower urinary tract symptoms, Z00.00 - Encounter for general adult medical examination without abnormal findings Lipid Panel 4 Months N40.1 - Benign prostatic hyperplasia with lower urinary tract symptoms, Z00.00 - Encounter for general adult medical examination without abnormal findings Microalbumin, Random (w Creat) 4 Months I10 - Essential (primary) hypertension, N40.1 - Benign prostatic hyperplasia with lower urinary tract symptoms TSH reflex Free T4 4 Months N40.1 - Benign prostatic hyperplasia with lower urinary tract symptoms, Z00.00 - Encounter for general adult medical examination without abnormal findings Prostate Specific Antigen Scr 1 Day N40.1 - Benign prostatic hyperplasia with lower urinary tract symptoms, Z12.5 - Encounter for screening for malignant neoplasm of prostate Comprehensive [place]. Panel Fast 4 Months N40.1 - Benign prostatic hyperplasia with lower urinary tract symptoms, Z00.00 - Encounter for general adult medical examination without abnormal findings UA and rflx microscopic 4 Months N40.1 - Benign prostatic hyperplasia with lower urinary tract symptoms, Z00.00 - Encounter for general adult medical examination without abnormal findings Coding Level of Care Code Est Pt Level 3 (12661) Diagnoses Diabetes E11.9 Hyperlipidemia E78.5 Essential hypertension I10
[2023-12-13 10:45] VITALS: BP 124/68; PULSE 81; O2SAT 98; BMI 26.0
== END 2023-12-13 11:34 | disposition home or self-care (01) ==
PROVIDERS: PCP Family Medicine; Visit Provider Family Medicine
DX: E11.9 Type 2 diabetes mellitus without complications (principal); E78.5 Hyperlipidemia, unspecified; I10 Essential (primary) hypertension
CPT/HCPCS: 83036; 99213

== ENCOUNTER 2023-12-21 11:14 | Outpatient (REF) | payer MEDICARE, SELFPAY ==
[2023-12-21 17:40] LABS: Prostate Specific Antigen Scr 1.73 ng/mL (<0.05-4.0)
== END 2023-12-21 11:15 | disposition home or self-care (01) ==
LOC: HO.WFDLDS 11:14
PROVIDERS: Visit Provider Family Medicine
DX: N40.1 Benign prostatic hyperplasia with lower urinary tract symptoms (principal); Z12.5 Encounter for screening for malignant neoplasm of prostate
CPT/HCPCS: 36415; 84153

== ENCOUNTER 2023-12-28 06:45 | Day surgery (SDC) | payer MEDICARE, SELFPAY ==
[2023-12-28 07:10] VITALS: BP 132/63; PULSE 69; RESP 16; TEMP 36.2; O2SAT 96; BMI 25.4
[2023-12-28] MEDS: Lactated Ringers 1,000 ML 100 ML IVCONT (07:36)
--- NOTE | 2023-12-28 07:58 | MHC.SHP ---
Pre-Procedural Eval Section A - 24 Hr Update-Section A only Date of Service: 12/28/23 Section B - Complete if H&P > 30 days Chief Complaint: Personal history of colonic polyps Relevant Family History (Specify if Yes): No Relevant Social History: None Present Medications: see Short Stay Collaborative assessment Medical History: Significant History (HTN (hypertension) Hypothyroidism Hyperlipidemia Diabetes) History of Previous Operations: Relevant previous surgery/procedure and date(s) (Status post tendon reattachment History of cataract surgery History of hernia repair) Allergies: Allergies Allergy/AdvReac Type Severity Reaction Status Date / Time No Known Allergies Allergy Verified 12/28/23 07:08 Review of Systems Sugical H&P ROS: Negative: Constitution, Cardiovascular, Respiratory, Neurological, Psychiatric, Hem-Onc, Allergic/Immunologic, Gastrointestinal, Genitourinary, Musculoskeletal, Integumentary, Endocrine and Eyes/Ears/Nose/Throat Exam Surgical H&P Exam: Normal: HEENT, Normal: Heart, Normal: Lungs, Normal: Extremities, Normal: Abdomen, Normal: Skin and Normal: Neurological Plan Diagnosis/Plan: Unchanged I have reviewed the history and physical and performed a pertinent physical examination on my patient. No changes have occurred unless specified. Time Spent With Patient Time: Total time managing care of this patient today ____ minutes.
--- NOTE | 2023-12-28 08:01 | PC.NURSE ---
Patient took aspirin yesterday. Dr. Thomas made aware. Okay to proceed.
--- NOTE | 2023-12-28 08:03 | PC.NURSE ---
Dr. Brody at bedside. Made aware of familial history of Malignant Hyperthermia (patients Niece). Patient also no longer takes meds for history of diabetes nor checks his sugars. Per Dr. Brody, no preop blood sugar needed.
--- NOTE | 2023-12-28 08:05 | HO.ANESPROP2 ---
Documented by User: Janette Saleh NP 12/27/23 08:18 HPI - Anesthesia Eval Consult details Narrative: 73yo M for Colonoscopy PMF Active Problems Active Problems: All Active Problems History of colon polyps (Acute) Urinary hesitancy due to benign prostatic hyperplasia (Acute) Enlarged prostate (Acute) Enlarged prostate with lower urinary tract symptoms (LUTS) (Acute) Nocturia (Acute) Urinary frequency (Acute) Elevated PSA (Acute) Pre-hypertension (Acute) Elbow pain (Acute) Low HDL (under 40) (Acute) Diabetes (Acute) Left shoulder pain (Acute) Cough (Acute) Screening for prostate cancer (Acute) Screening for colon cancer (Acute) Hyperlipidemia (Acute) Elevated fasting glucose (Acute) Adult general medical exam (Acute) Arthritis of both knees (Acute) Low back pain (Acute) Mid back pain on right side (Acute) Back pain (Acute) Neck pain (Acute) Hypothyroidism (Acute) Essential hypertension (Acute) Laboratory examination ordered as part of a complete physical examination (Acute) Past Medical History Medical History (Updated 12/28/23 @ 07:48 by Anna Spain RN) HTN (hypertension) Diabetes Hyperlipidemia Hypothyroidism Family History Family History Mother Multiple myeloma Father Prostate CA Brother Prostate CA Surgical History Surgical History (Updated 12/28/23 @ 07:09 by Anna Spain RN) Status post tendon reattachment History of cataract surgery History of hernia repair Social History Social History Housing: Apartment Patient Tobacco Use Status: Former Tobacco user Tobacco use type: Cigarette Years Smoked: 15 Smoked in Last 30 Days: No e-Cigarette/Vaping Use: Never Used Second Hand Smoke Exposure: No Use of substances other than those prescribed or required for medical reasons: No Are you DNR?: No Advance Directives: No Advance Directives Information Provided: Yes service: No Current occupational status: retired Current occupational exposures/hazards: No Cognitive needs: No Hearing needs: No Vision needs: No Meds Allergies Allergy/AdvReac Type Severity Reaction Status Date / Time No Known Allergies Allergy Verified 12/28/23 07:08 Home Medications ?Medication ?Instructions ?Recorded ?Confirmed ?Last Taken ?Type ascorbic acid (vitamin C) 1,000 mg 1 g PO DAILY 06/05/21 12/28/23 Unknown History tablet cholecalciferol (vitamin D3) 25 25 mcg PO DAILY 06/05/21 12/28/23 Unknown History mcg (1,000 unit) capsule magnesium 200 mg tablet 200 mg PO DAILY 06/05/21 12/28/23 Unknown History aspirin 81 mg tablet,delayed 81 mg PO DAILY 08/05/22 12/28/23 12/27/23 History release Exam Pertinent Lab Results Pertinent Lab Results: Laboratory Tests 06/07/23 12/06/23 10:35 09:08 WBC 4.5 L Hgb 15.5 Hct 44.7 Plt Count 170 Sodium 140 Potassium 4.1 Chloride 107 Carbon Dioxide 25 BUN 19 H Creatinine 0.76 Assessment and Plan Assessment Anesthesia Assessment: Chart Reviewed Documented by User: Rebeca Brody DO 12/28/23 08:06 HPI - Anesthesia Eval Consult details Narrative: 73yo M for Colonoscopy. Family hx of MH - niece. Patient had multiple surgeries without issue PMFSH Past Medical History Medical History (Updated 12/28/23 @ 07:48 by Anna Spain RN) HTN (hypertension) Diabetes Hyperlipidemia Hypothyroidism Family History Family History Mother Multiple myeloma Father Prostate CA Brother Prostate CA Family history of problems with anesthesia: No Surgical History Surgical History (Updated 12/28/23 @ 07:09 by Anna Sapin RN) Status post tendon reattachment History of cataract surgery History of hernia repair History of Problems with Anesthesia: No Social History Social History Housing: Apartment Patient Tobacco Use Status: Former Tobacco user Tobacco use type: Cigarette Years Smoked: 15 Smoked in Last 30 Days: No e-Cigarette/Vaping Use: Never Used Second Hand Smoke Exposure: No Use of substances other than those prescribed or required for medical reasons: No Are you DNR?: No Advance Directives: No Advance Directives Information Provided: Yes service: No Current occupational status: retired Current occupational exposures/hazards: No Cognitive needs: No Hearing needs: No Vision needs: No Meds Allergies Allergy/AdvReac Type Severity Reaction Status Date / Time No Known Allergies Allergy Verified 12/28/23 07:08 Home Medications ?Medication ?Instructions ?Recorded ?Confirmed ?Last Taken ?Type ascorbic acid (vitamin C) 1,000 mg 1 g PO DAILY 06/05/21 12/28/23 Unknown History tablet cholecalciferol (vitamin D3) 25 25 mcg PO DAILY 06/05/21 12/28/23 Unknown History mcg (1,000 unit) capsule magnesium 200 mg tablet 200 mg PO DAILY 06/05/21 12/28/23 Unknown History aspirin 81 mg tablet,delayed 81 mg PO DAILY 08/05/22 12/28/23 12/27/23 History release Exam Exam Date and Time: December 28, 2023803 Height,Weight and Vital Signs: Height 5 ft 6 in Weight 71.305 kg Vital Signs Temperature 97.2 F 12/28/23 07:10 Pulse Rate 69 12/28/23 07:10 Respiratory Rate 16 12/28/23 07:10 Blood Pressure 132/63 12/28/23 07:10 Pulse Oximetry 96 12/28/23 07:10 Oxygen Delivery Method Room Air 12/28/23 07:10 Temperature 97.2 F 12/28/23 07:10 Pulse Rate 69 12/28/23 07:10 Respiratory Rate 16 12/28/23 07:10 Blood Pressure 132/63 12/28/23 07:10 Pulse Oximetry 96 12/28/23 07:10 Oxygen Delivery Method Room Air 12/28/23 07:10 Airway Mallampati Class: I TM Dist: >3cm Neck ROM: Full Loose/Missing/Broken Teeth: No (patient denies any loose or broken teeth) Heart: S1S2 Lungs: CTAB Assessment and Plan Assessment Anesthesia Assessment: Anesthesia Plan Discussed and Chart Reviewed Final Anesthetic Review Family History of Problems with Anesthesia: No History of Problems with Anesthesia: No NPO: Yes ASA Class: II and Final Preanesthetic Review: No Changes in Pt Med Stat, Meds/Allgs Chart Reviewed, Consent Obtained/Reviewed and Anes Risks/Benef Reviewed Patient Risk: Low Procedure Risk: Low Anesthetic Plan Anesthetic Plan: MAC: and Agree w/ Assess. and Plan Disposition: Standard PACU
--- NOTE | 2023-12-28 08:06 | P.OPN-COLO_ITS ---
Colonoscopy Operative Note Operative Note Date of Service: 12/28/23 Narrative: Operative Information Procedure Description: Colonoscopy Indication: screening Anesthesia: MAC COLONOSCOPY Instrument: Olympus variable stiffness pediatric scope 190L Colonoscopy Monitoring: Vital signs and clinical assessment, continuous EKG monitoring, Pulse oximetry, Carbon Dioxide monitoring and blood pressure monitoring were done throughout the procedure. Colon withdrawal time was 7 minutes. Procedure: The patient was placed in the left lateral decubitis position and pre-procedure medications were administered. After a digital rectal examination of the ano-rectum, the video colonoscope was inserted into the rectum and advanced through the colon to the cecum/TI. The colonoscope was slowly withdrawn in a retrograde panoramic fashion and the colon mucosa was carefully examined including a retroflexed view of the rectum. Findings and interventions are described below. Procedure Difficulty: moderate, pressure applied Findings: Terminal Ileum-normal Cecum: 4-5 mm sessile polyp removed with cold forceps Right sided retroflexion- normal Ascending Colon: normal Transverse Colon -normal Descending Colon:normal Sigmoid Colon: normal Rectum: Retroflexion with small internal hemorrhoids seen, grade I Anorectum - normal Intervention: cold forceps Colon preparation: Montgomery Bowel Preparation Scale Right colon; 2 Transverse colon: 2 Left colon; 2 (0 = Unprepared colon segment with mucosa not seen due to solid stool that cannot be cleared. 1 = Portion of mucosa of the colon segment seen, but other areas of the colon segment not well seen due to staining, residual stool and/or opaque liquid. 2 = Minor amount of residual staining, small fragments of stool and/or opaque liquid, but mucosa of colon segment seen well. 3 = Entire mucosa of colon segment seen well with no residual staining, small fragments of stool or opaque liquid) Impression and Post Procedure Diagnosis: colon polyp internal hemorrhoids Plan: High fiber diet leaflet Avoid straining at stool, epsom salts and sitz bath, anusol supps or cream Repeat Colonoscopy in 5 years if health allows or earlier if clinically indicated Above findings were reviewed with the patient and relevant handouts were provided if indicated.
[2023-12-28 08:38] VITALS: BP 87/51; PULSE 65; RESP 14; TEMP 36.5; O2SAT 94
[2023-12-28 08:53] VITALS: BP 113/64; PULSE 61; RESP 14; O2SAT 98
== END 2023-12-28 09:53 | disposition home or self-care (01) ==
PROVIDERS: PCP Family Medicine; Visit Provider Internal Medicine Gastroenterology
PROC: 0DJD8ZZ Inspection of Lower Intestinal Tract, Via Natural or Artificial Opening Endoscopic (ICD-10-PCS; CPT 45378; principal; 2023-12-28 08:20)
DX: Z12.11 Encounter for screening for malignant neoplasm of colon (principal); Z86.010 Personal history of colon polyps; D12.0 Benign neoplasm of cecum; K64.0 First degree hemorrhoids; I10 Essential (primary) hypertension; E03.9 Hypothyroidism, unspecified; E78.5 Hyperlipidemia, unspecified; E11.9 Type 2 diabetes mellitus without complications; Z79.82 Long term (current) use of aspirin; Z79.899 Other long term (current) drug therapy; Z87.891 Personal history of nicotine dependence; Z98.890 Other specified postprocedural states
CPT/HCPCS: 45380; 88305; J2704

== ENCOUNTER → 2023-12-28 06:45 | Outpatient (BNV) | payer MEDICARE, SELFPAY | PROVIDERS: PCP Family Medicine; Visit Provider Internal Medicine Gastroenterology | DX: Z12.11 Encounter for screening for malignant neoplasm of colon (principal); D12.0 Benign neoplasm of cecum; K64.0 First degree hemorrhoids | CPT/HCPCS: 45380 ==

== ENCOUNTER 2024-07-20 09:42 | Outpatient (AMB) | payer MEDICARE, SELFPAY ==
--- NOTE | 2024-07-20 09:51 | MHC.PC.OV ---
Vital Signs 07/20/24 09:57 Height 5 ft 6 in Weight 163 lb 4 oz BMI 26.3 BP 130/66 Blood Pressure Location Lt brachial Position Sitting Respiration 14 Pulse 61 Pulse Source Pulse Oximeter Temp 97.7 F Temp Source Oral Pulse Oximetry (%) 95 Oxygen Delivery Method Room Air Intake Visit Reasons: podiatry rerferral Intake Note: podiatry referral for bunion on his left foot causing him pain and discomfort and he states he also gets a shooting pain in the arch of his foot. on his right foot his knuckle of the right pinky toe a pad of flesh bulging out that causes him pain and discomfort. Charity Fundraiser Required: No Allergies No Known Allergies Allergy (Verified 07/20/24 09:51) Medication List - Last Reconciled 07/20/24 by Jose Luis Aguilar MD ascorbic acid (vitamin C) 1 g PO DAILY aspirin 81 mg PO DAILY atorvastatin 40 mg PO BEDTIME 90 days cholecalciferol (vitamin D3) 25 mcg PO DAILY finasteride 5 mg PO DAILY 90 days levothyroxine 50 mcg PO DAILY 90 days magnesium 200 mg PO DAILY terazosin 5 mg PO BEDTIME 90 days Tobacco use date assessed: 11/29/23 Dental Screening Dental Screen Date: 09/13/23 HPI podiatry rerferral HPI Details 73 y/o male presents today requesting a podiatry referral. Has complaints of bunion, arch pain. He notes he has had a recent A1c - 5.7%. [facility] Medical History (Updated 07/20/24 @ 10:41 by Bin Salazar) HTN (hypertension) Diabetes Hyperlipidemia Hypothyroidism Surgical History (Updated 12/28/23 @ 07:09 by Anna Spain RN) Status post tendon reattachment History of cataract surgery History of hernia repair Family History Mother Multiple myeloma Father Prostate CA Brother Prostate CA Social History Housing: Apartment Patient Tobacco Use Status: Former Tobacco user Tobacco use type: Cigarette Years Smoked: 15 e-Cigarette/Vaping Use: Never Used Second Hand Smoke Exposure: No service: No Current occupational status: retired Current occupational exposures/hazards: No Cognitive needs: No Hearing needs: No Vision needs: No Questionnaire PHQ-9 Over the last 2 weeks, how often have you been bothered by any of the following problems? 3. Trouble falling or staying asleep, or sleeping too much: not at all 4. Feeling tired or having little energy: not at all 5. Poor appetite or overeating: not at all 6. Feeling bad about yourself - or that you are a failure or have let yourself or your family down: not at all 7. Trouble concentrating on things, such as reading the newspaper or watching television: not at all 8. Moving or speaking so slowly that other people could have noticed. Or the opposite - being so fidgety or restless that you have been moving around a lot more than usual: not at all 9. Thoughts that you would be better off or of hurting yourself in some way: not at all Source: Developed by Drs. Tyler Loya, Diana Rios, Niko Hurst and colleagues, with an educational davi from [employer]. Thrive Questionnaire Date Thrive assessed: 07/20/24 I am a: Patient What is your living situation today?: I have a steady place to live Within the past 12 months, did the food you bought not last and you didn't have the money to get more?: Never true Within the past 12 months, did you worry whether your food would run out before you got money to buy more?: I choose not to answer this question Do you have trouble paying for medicines?: No Do you have trouble getting transportation to medical appointments?: Yes Do you have trouble paying your heating and electricity bill?: No Do you have trouble taking care of your child, family member or friend?: No Do you have trouble with day-to-day activities such as bathing, preparing meals, shopping, managing finances, etc.?: No Are you currently unemployed and looking for a job?: No Are you interested in more education?: No Please select the resources that you would like help with: None THRIVE Score: 1 MARCELINA-7 AMB Questionnaire MARCELINA-7 Date MARCELINA - 7 assessed: 06/14/23 Source: Developed by Drs. Tyler Loya, Diana Rios, Niko Hurst and colleagues, with an educational davi from [employer]. Review of Systems Const Denies chills, Denies fatigue, Denies fever(s), Denies headache(s) and Denies weakness ENT Denies dizziness and Denies headache(s) Card Denies dyspnea Resp Denies cough, Denies dyspnea, Denies wheezing and Denies other (shortness of breath) Musc Details: Foot pain Denies numbness and Denies tingling Neuro Denies dizziness, Denies headache(s), Denies numbness, Denies tingling and Denies weakness Psych Denies anxiety and Denies depression Endo Denies fatigue Aller/Immun Denies wheezing Physical exam (Primary Care) Vital Signs: Last Vital Signs Temp 97.7 F 07/20/24 09:57 Pulse 61 07/20/24 09:57 Resp 14 07/20/24 09:57 BP 130/66 07/20/24 09:57 Pulse Ox 95 07/20/24 09:57 Oxygen Delivery Method Room Air 07/20/24 09:57 BMI result Body Mass Index 26.3 Tobacco/Smoking Status: Tobacco use Status Tobacco use date assessed 11/29/23 07/20/24 09:59 Patient Tobacco Use Status Former Tobacco user 07/20/24 09:59 Tobacco use type Cigarette 07/20/24 09:59 e-Cigarette/Vaping Use Never Used 07/20/24 09:59 Thrive Assessment: Date of Thrive Assessment Date Thrive assessed 07/20/24 07/20/24 09:59 Const General: well developed; No acute distress Nutritional Appearance: well nourished Orientation/consciousness: patient oriented x3 HENMT Head: Yes normocephalic and Yes atraumatic Eyes General: appearance normal, both eyes and all related structures Pupils: Equal, round and reactive pupils present EOM: EOMs intact bilaterally Resp Effort & Inspection: normal respiratory effort Neuro General: patient oriented x3 and gait normal Cranial nerves: Yes Equal, round and reactive pupils present Extrem Other: L foot bunion R foot 5th metararsal bunion Psych Affect: normal affect Coding Level of Care Code Est Pt Level 4 (92405) Diagnoses Bunion M21.619 Foot arch pain M79.673 Pre-diabetes R73.03 Tailor's bunion M21.629 Assessment & Plan Assessment & Plan (1) Bunion: Code(s): M21.619 - Bunion of unspecified foot Category: Medical (2) Foot arch pain: Code(s): M79.673 - Pain in unspecified foot Category: Medical (3) Pre-diabetes: Code(s): R73.03 - Prediabetes Category: Medical (4) Tailor's bunion: Code(s): M21.629 - Bunionette of unspecified foot Category: Medical Plan Bunion?at?left?great?toe?and?tailor's?bunion?at?right?5th?toe Also?has?arch?pain?at?left?foot?secondary?to?bunion Can?use?naproxen Referred?to?Podiatry Patient?notes?that?an?insurance?A1c?test?was?5.7%?which?is?in?pre?diabetes range. Will?recheck?this?with?his?next?set?of?labs?and?advise?patient. Orders: Orders Comprehensive [place]. Panel Fast Today Z00.00 - Encounter for general adult medical examination without abnormal findings Lipid Panel Today Z00.00 - Encounter for general adult medical examination without abnormal findings Microalbumin, Random (w Creat) Today I10 - Essential (primary) hypertension Hemoglobin A1c Today R73.01 - Impaired fasting glucose Complete Blood Count Auto Diff Today Z00.00 - Encounter for general adult medical examination without abnormal findings TSH reflex Free T4 Today Z00.00 - Encounter for general adult medical examination without abnormal findings UA and rflx microscopic Today Z00.00 - Encounter for general adult medical examination without abnormal findings Referrals Podiatry Referral M21.619 - Bunion of unspecified foot
[2024-07-20 09:57] VITALS: BP 130/66; PULSE 61; RESP 14; TEMP 36.5; O2SAT 95; BMI 26.3
--- OUTSIDE RECORDS SUMMARY | 2024-07-20 11:04 | XMS_ITS | Clinical Summary ---
Author Organization [facility] Address [address] [place] [address] Care Team Providers Care Insole Tack Puller Hand Name Role Phone Unavailable Primary Care Provider Unavailabl e Social History Tobacco Use Types Packs/Day Years Used Date Smoking Tobacco: Never Assessed Sex and Gender Information Value Date Recorded Sex Assigned at Not on file Gender Identity Not on file Sexual Orientation Not on file Plan of Treatment Health Maintenance Due Date Last Done Comments Hepatitis C Screening 1950 COVID-19 Vaccine (#1) 02/21/1952 Depression Screening 1963 Preventative Health Evaluation 08/20/1969 Colon Cancer Screening (Colonoscopy) 08/20/1996 Shingrix-Zoster Vaccine (1 of 2) 08/20/2001 Fall Risk Assessment 08/20/2016 Pneumococcal Vaccine (1 of 1 - PCV) 08/20/2016 DTap / Tdap / Td (2 - Td or Tdap) 05/24/2018 009 Influenza Vaccine (#1) 2024 RSV Adult > 60+ Yrs or Pregn ant (1 - 1-dose 75+ series) 08/20/2026 Hepatitis B Vaccines Aged Out No long er eligible based on patient's age to complete this topic RSV Ped < 20 months Aged Out No longe r eligible based on patient's age to complete this topic
== END 2024-07-20 10:40 | disposition home or self-care (01) ==
PROVIDERS: PCP Family Medicine; Visit Provider Family Medicine
DX: M21.619 Bunion of unspecified foot (principal); M79.673 Pain in unspecified foot; R73.03 Prediabetes; M21.629 Bunionette of unspecified foot

== ENCOUNTER → 2024-07-20 09:42 | Outpatient (BNVA) | payer MEDICARE, SELFPAY | PROVIDERS: PCP Family Medicine; Visit Provider Family Medicine | DX: M21.611 Bunion of right foot (principal); M21.612 Bunion of left foot; R73.03 Prediabetes; M79.671 Pain in right foot; M79.672 Pain in left foot; M21.621 Bunionette of right foot; M21.622 Bunionette of left foot | CPT/HCPCS: 99212 ==

== ENCOUNTER 2024-08-10 09:23 | Outpatient (REF) | payer MEDICARE, SELFPAY ==
[2024-08-10 11:28] LABS: MANUAL DIFF FLAG NO
[2024-08-10 11:42] LABS: Basophils Percent Auto 0.5 % (0-2); Eosinophils Absolute Auto 0.2 X10*3/uL (0.0-0.4); Eosinophils Percent Auto 4.7 % (0-4); Hematocrit 43.7 % (42.0-52.0); Hemoglobin 14.7 g/dl (14.0-18.0); Imm Gran Abs Auto 0.01 X10*3/uL (0.00-0.03); Imm Gran Pct Auto 0.2 % (0.0-0.4); Lymphocytes Absolute Auto 1.2 X10*3/uL (1.2-4.9); Lymphocytes Percent Auto 30.2 % (20-40); Mean Corpuscular HGB Conc 33.6 g/dl (31.0-36.0); Mean Corpuscular Hemoglobin 31.1 pg (27.0-33.0); Mean Corpuscular Volume 92.6 fL (80.0-98.0); Mean Platelet Volume 10.2 fL (9.4-12.4); Monocytes Absolute Auto 0.4 X10*3/uL (0.1-1.2); Neutrophils Absolute Auto 2.2 x10*3/uL (2.0-8.3); Neutrophils Percent Auto 55.4 % (45-73); Platelet Count 142 X10*3/uL (160-400); Red Blood Count 4.72 X10*6/uL (4.60-5.80); Red Cell Distribution Width 12.5 % (11.0-16.0)
[2024-08-10 11:53] LABS: Estimated Average Glucose 114 mg/dL; Hemoglobin A1C 143.7933 umol/L; Hemoglobin A1c % 5.6 % (<6.0); Total Hemoglobin (HGBA1C) 3836.1935 umol/L
[2024-08-10 12:39] LABS: Alanine Aminotransferase 31 U/L (0-40); Albumin Level 4.4 g/dL (3.5-5.0); Alkaline Phosphatase 56 U/L (39-117); Anion Gap 10 (12-20); Aspartate Amino Transferase 27 U/L (5-37); Bilirubin Total 0.9 mg/dL (0.0-1.0); Blood Urea Nitrogen 23 mg/dL (9-16); Calcium 9.1 mg/dL (8.4-10.2); Carbon Dioxide 26 mmol/L (22-29); Chloride 108 mmol/L (96-108); Cholesterol 151 mg/dL (<200); Estimated Glomerular Filt Rate > 60; Glucose Fasting 110 mg/dL (60-99); HDL Cholesterol 51 mg/dL (>40); LDL Cholesterol Calculated 88 mg/dL (<100); Potassium 4.1 mmol/L (3.3-5.1); Sodium 140 mmol/L (135-145); Total Protein 7.2 g/dL (6.5-8.0); Triglycerides 60 mg/dL (<150)
[2024-08-10 12:44] LABS: TSH reflex Free T4 2.93 uIU/mL (0.32-4.0)
[2024-08-10 14:36] LABS: Appearance Urine Clear; Color Urine Yellow; Glucose Urine UA Negative (Negative); Leukocyte Esterase Urine Negative (Negative); Nitrite Urine Negative (Negative); Specific Gravity - Urine 1.025 (1.005-1.025); Urine Blood Negative (Negative); Urine Ketones Negative (Negative); Urine Protein Negative (Neg-Trace)
[2024-08-10 15:16] LABS: Creatinine Urine 134.93 mg/dL; Microalbum/Creatinine Ratio Ur 5.1 ug/mg cr (<30)
== END 2024-08-10 09:24 | disposition home or self-care (01) ==
LOC: HO.WFDLDS 09:23
PROVIDERS: Visit Provider Family Medicine
DX: N40.1 Benign prostatic hyperplasia with lower urinary tract symptoms (principal); I10 Essential (primary) hypertension; R73.01 Impaired fasting glucose; Z00.00 Encounter for general adult medical examination without abnormal findings
CPT/HCPCS: 36415; 80053; 80061; 81003; 82043; 82570; 83036; 84443; 85025

== ENCOUNTER 2024-08-18 10:00 | Outpatient (AMB) | payer MEDICARE, SELFPAY ==
--- NOTE | 2024-08-18 10:08 | A.OFFPC_ITS ---
Vital Signs 08/18/24 10:10 Height 5 ft 6 in Weight 157 lb BMI 25.3 BP 134/60 Blood Pressure Location Lt brachial Position Sitting Respiration 14 Pulse 68 Pulse Source Pulse Oximeter Temp 98.3 F Temp Source Oral Pulse Oximetry (%) 94 Oxygen Delivery Method Room Air Intake Visit Reasons: f/u labs Intake Note: patient is scheduled for lab review Nursing Informatics Clinical Analyst Required: No Allergies No Known Allergies Allergy (Verified 08/18/24 10:08) Medication List - Last Reconciled 08/18/24 by Jose Luis Aguilar MD ascorbic acid (vitamin C) 1 g PO DAILY aspirin 81 mg PO DAILY atorvastatin 40 mg PO BEDTIME 90 days cholecalciferol (vitamin D3) 25 mcg PO DAILY finasteride 5 mg PO DAILY 90 days levothyroxine 50 mcg PO DAILY 90 days magnesium 200 mg PO DAILY naproxen 500 mg PO BID PRN 30 days terazosin 5 mg PO BEDTIME 90 days Tobacco use date assessed: 11/29/23 Dental Screening Dental Screen Date: 09/13/23 HPI f/u labs HPI Details 73 y/o male presents to f/u foot pain, s [facility] pain, labs. Also presents for an extended exam. Labs drawn 08/10/24. Reviewed labs with pt. Plt count 142. Fasting glucose 110. A1c 5.6%. Triglycerides 60. TC 151. LDL 88. HDL 51. He is on artovastatin 40mg. 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 He notes naproxen has been helping with his shoulder/foot pain. Pt had a colonoscopy last summer. Pt notes they had recommended a 5 year follow- up. [facility] Medical History (Updated 08/18/24 @ 10:28 by Bin Salazar) Hypothyroidism Hyperlipidemia HTN (hypertension) Diabetes Surgical History (Updated 12/28/23 @ 07:09 by Anna Spain RN) Status post tendon reattachment History of cataract surgery History of hernia repair Family History Mother Multiple myeloma Father Prostate CA Brother Prostate CA Social History Housing: Apartment Patient Tobacco Use Status: Former Tobacco user Tobacco use type: Cigarette Years Smoked: 15 e-Cigarette/Vaping Use: Never Used Second Hand Smoke Exposure: No service: No Current occupational status: retired Current occupational exposures/hazards: No Cognitive needs: No Hearing needs: No Vision needs: No Questionnaire PHQ-9 Over the last 2 weeks, how often have you been bothered by any of the following problems? 1. Little interest or pleasure in doing things: nearly every day 2. Feeling down, depressed, or hopeless: not at all Source: Developed by Drs. Tyler Loya, Diana Rios, Niko Hurst and colleagues, with an educational davi from [employer]. Thrive Questionnaire Date Thrive assessed: 07/20/24 What is your living situation today?: I have a steady place to live Within the past 12 months, did the food you bought not last and you didn't have the money to get more?: Never true Within the past 12 months, did you worry whether your food would run out before you got money to buy more?: I choose not to answer this question Do you have trouble paying for medicines?: No Do you have trouble getting transportation to medical appointments?: Yes Do you have trouble paying your heating and electricity bill?: No Do you have trouble taking care of your child, family member or friend?: No Do you have trouble with day-to-day activities such as bathing, preparing meals, shopping, managing finances, etc.?: No Are you currently unemployed and looking for a job?: No Are you interested in more education?: No Please select the resources that you would like help with: None Currently or been in a relationship where the following occur: No concerns reported THRIVE Score: 1 AUDIT C Alcohol Use Questionnaire (AUDIT-C) 1. How often do you have a drink containing alcohol?: Monthly or less 2. How many drinks containing alcohol do you have on a typical day when you are drinking?: 1 or 2 3. How often do you have six or more drinks on one occasion?: Never Total Score: 1 MARCELINA-7 AMB Questionnaire MARCELINA-7 Date MARCELINA - 7 assessed: 06/14/23 Feeling nervous, anxious, or on edge: 0 = Not at all Not being able to stop or control worryin = Not at all Worrying too much about different things: 0 = Not at all Trouble relaxin = Several days Being so restless that it is hard to sit still: 0 = Not at all Becoming easily annoyed or irritable: 0 = Not at all Feeling afraid as if something awful might happen: 0 = Not at all Total MARCELINA-7 score (0-4 normal; 5-9 mild; 10-14 moderate; 15-21 severe): 1 Source: Developed by Drs. Tyler Loya, Diana Rios, Niko Hurst and colleagues, with an educational davi from [employer]. Review of Systems Const Denies chills, Denies fatigue, Denies fever(s), Denies headache(s) and Denies weakness Eyes Denies change in vision ENT Denies dizziness and Denies headache(s) Card Denies dyspnea Resp Denies cough, Denies dyspnea, Denies wheezing and Denies other (shortness of breath) GI Denies abdominal pain, Denies melena, Denies hematochezia, Denies change in bowel habits, Denies dyspepsia and Denies nausea Denies hematuria and Denies dysuria Musc Denies numbness and Denies tingling Skin/Breast Denies rash, Denies unusual bruising and Denies wounds Neuro Denies dizziness, Denies headache(s), Denies numbness, Denies Sensory deficit (Neuro), Denies tingling and Denies weakness Psych Denies anxiety and Denies depression Endo Denies fatigue Huang/Lymph Denies easy bleeding and Denies easy bruising Aller/Immun Denies wheezing Physical exam (Primary Care) Vital Signs: Last Vital Signs Temp 98.3 F 08/18/24 10:10 Pulse 68 08/18/24 10:10 Resp 14 08/18/24 10:10 BP 134/60 08/18/24 10:10 Pulse Ox 94 08/18/24 10:10 Oxygen Delivery Method Room Air 08/18/24 10:10 BMI result Body Mass Index 25.3 Tobacco/Smoking Status: Tobacco use Status Tobacco use date assessed 11/29/23 08/18/24 10:13 Patient Tobacco Use Status Former Tobacco user 08/18/24 10:13 Tobacco use type Cigarette 08/18/24 10:13 e-Cigarette/Vaping Use Never Used 08/18/24 10:13 Thrive Assessment: Date of Thrive Assessment Date Thrive assessed 07/20/24 08/18/24 10:13 Currently or been in a relationship where the following occur: No concerns reported Const General: well developed; No acute distress Nutritional Appearance: well nourished Orientation/consciousness: patient oriented x3 HENMT Head: Yes normocephalic and Yes atraumatic Ears: hearing grossly normal bilaterally and TM's normal bilaterally General nose exam: Normal external nose present and Normal nares present Mouth: Normal oral and palatal mucosa present and moist mucous membranes Teeth and gingiva: dentition normal Throat: Yes posterior oropharynx normal Eyes General: appearance normal, both eyes and all related structures Pupils: Equal, round and reactive pupils present EOM: EOMs intact bilaterally Neck Neck: Yes normal visual inspection, Yes no lymphadenopathy and Yes trachea midline Thyroid: Thyroid normal Carotids: no bruits Lymphatic: no lymphadenopathy noted Chest Chest palpation & inspection: normal inspection of the chest Resp Effort & Inspection: normal respiratory effort Auscultation: clear to auscultation bilaterally Cardio Rate: regular rate Rhythm: regular rhythm Heart sounds: S1 normal heart sound present, S2 normal heart sound present, no gallops, no murmurs and no rubs Bruits: no abdominal aortic bruits and no carotid bruits GI Palpation (GI): No Abdominal aortic bruit present, Soft to palpation, nontender, No hepatosplenomegaly present and No Rebound tenderness present Auscultation: normal bowel sounds General: Yes no CVA tenderness Back/Spine/Pelvis Back: no CVA tenderness Cervical Spine: cervical ROM normal and No Cervical spine tenderness Thoracic/Lumbar Spine: thoraco-lumbar ROM normal, No pain with thoraco-lumbar ROM, No thoracic spinal tenderness and No lumbar spinal tenderness Skin Lesions: no lesions Rashes: no rashes Trauma: no lacerations or abrasions Wounds: no wounds Nails: normal Neuro General: patient oriented x3 and gait normal Cranial nerves: Yes Equal, round and reactive pupils present Cognition (Neuro): normal cognition Gait exam (Neuro): Normal gait present Motor exam (neuro): 5/5 motor strength present throughout Sensory Exam: No Sensory deficit (Neuro) Deep tendon reflexes (DTR's): Right patellar reflex intensity grade: 2+ and Left patellar reflex intensity grade: 2+ Extrem General: Yes normal to inspection and No edema Psych Appearance: grossly normal Affect: normal affect Attitude: cooperative Thought process: Normal thought process present Coding Level of Care Code Est Pt Level 4 (40992) Diagnoses Elevated fasting glucose R73.01 Essential hypertension I10 Hypothyroidism E03.9 Hyperlipidemia E78.5 Foot arch pain M79.673 Screening for colon cancer Z12.11 Screening for prostate cancer Z12.5 Adult general medical exam Z00.00 Assessment & Plan Assessment & Plan (1) Elevated fasting glucose: Code(s): R73.01 - Impaired fasting glucose Category: Medical Plan: A1c?at?top?normal?range. Encouraged?diet?lower?in?sugars?and?starches Encouraged?weight?loss?and?exercise (2) Essential hypertension: Code(s): I10 - Essential (primary) hypertension Category: Medical Plan: Blood?pressure?is?controlled.??Goal?is?less?than?140/90 Continue?current?medication (3) Hypothyroidism: Code(s): E03.9 - Hypothyroidism, unspecified Category: Medical Plan: TSH?is?within?range Will?continue?monitor (4) Hyperlipidemia: Code(s): E78.5 - Hyperlipidemia, unspecified Category: Medical Plan: Lipids?are?well?controlled?on?atorvastatin Continue?current?medications (5) Foot arch pain: Code(s): M79.673 - Pain in unspecified foot Category: Medical Plan: Patient?now?has?an?appointment?with? Follow-up?with?podiatry?as?recommended (6) Screening for colon cancer: Code(s): Z12.11 - Encounter for screening for malignant neoplasm of colon Category: Medical Plan: Followed?by?Gastroenterology?Q5 Last?colonoscopy?was?01/11/2024.??Up-to-date.??Follow-up?with?GI?as?recommended (7) Screening for prostate cancer: Code(s): Z12.5 - Encounter for screening for malignant neoplasm of prostate Category: Medical Plan: PSA?in?Susanne?was?within?normal?limits Will?continue?annual?screening (8) Adult general medical exam: Code(s): Z00.00 - Encounter for general adult medical examination without abnormal findings Category: Medical Plan: 73-year-old?male?presents?for?an?extended?exam Encouraged?healthy?diet?with?active?lifestyle?plenty?of?exercise Orders: Orders Free T4 (Free Thyroxine) Today E03.9 - Hypothyroidism, unspecified Thyroid Stimulating Hormone Today E03.9 - Hypothyroidism, unspecified Comprehensive Met. Panel Today E03.9 - Hypothyroidism, unspecified Prostate Specific Antigen Scr Today Z12.5 - Encounter for screening for malignant neoplasm of prostate Triiodothyronine T3 Total Today E03.9 - Hypothyroidism, unspecified
[2024-08-18 10:10] VITALS: BP 134/60; PULSE 68; RESP 14; TEMP 36.8; O2SAT 94; BMI 25.3
== END 2024-08-18 10:33 | disposition home or self-care (01) ==
PROVIDERS: PCP Family Medicine; Visit Provider Family Medicine
DX: R73.01 Impaired fasting glucose (principal); I10 Essential (primary) hypertension; E03.9 Hypothyroidism, unspecified; E78.5 Hyperlipidemia, unspecified; M79.673 Pain in unspecified foot; Z12.11 Encounter for screening for malignant neoplasm of colon; Z12.5 Encounter for screening for malignant neoplasm of prostate; Z00.00 Encounter for general adult medical examination without abnormal findings

== ENCOUNTER → 2024-08-18 10:00 | Outpatient (BNVA) | payer MEDICARE, SELFPAY | PROVIDERS: PCP Family Medicine; Visit Provider Family Medicine | DX: Z00.01 Encounter for general adult medical examination with abnormal findings (principal); R73.01 Impaired fasting glucose; I10 Essential (primary) hypertension; E03.9 Hypothyroidism, unspecified; E78.5 Hyperlipidemia, unspecified; M79.673 Pain in unspecified foot | CPT/HCPCS: 99212 ==

== ENCOUNTER 2025-02-12 09:36 | Outpatient (REF) | payer MEDICARE, SELFPAY ==
[2025-02-12 11:17] LABS: MANUAL DIFF FLAG NO
--- OUTSIDE RECORDS SUMMARY | 2025-02-12 11:19 | XMS_ITS | Clinical Summary ---
Author Organization [address] [facility] Address [address] [place] [address] Phone Care Team Providers Care Date Night Sitter Name Role Phone Jose Luis Aguilar MD Primary Care Provider Medications diclofenac (Voltaren Arthritis Pain) 1 % topical gel Apply 4 g topically 2 (two) times a day. 240 g 1 01/15/20 25 Encounters Date Type Department Care Team Description 12/15/2024 Telephone Orthopedic Surgery [facility] [address] [phone] Maulik Cuevas DPM 11/15/2024 10:00 AM EDT Office Visit [facility] [address] [phone] Maulik Cuevas, DPM Hallux rigidus of left foot (Primary Dx); Hallux rigidus of right foot; Neuritis; Metatarsalgia of both feet from Last 3 Months Surgical History Surgery Date Site/Laterality Comments KNEE SURGERY Bilateral PROCEDURE: HISTORICAL KNEE SURGERY; COMMENT: Arthroscopic (Left Knee 2004; Right Knee x2: Dr Yepez 1986, Dr Pickard Meniscal Debridement 2004) CARPAL TUNNEL RELEASE Bilateral PROCEDURE: [facility] NEUROPLASTY &/TRANSPOS MEDIAN NRV CARPAL TUNNE COLONOSCOPY 12/2002 PROCEDURE: HISTORICAL COLONOSCOPY; COMMENT: adenoma, IBS COLONOSCOPY 10/14/2007 PROCEDURE: HISTORICAL COLONOSCOPY; COMMENT: Normal COLONOSCOPY 05/01/2013 PROCEDURE: HISTORICAL COLONOSCOPY; COMMENT: Normal. Repeat 5 yrs OTHER SURGICAL HISTORY 1991 PROCEDURE: HISTORY OTHER; COMMENT: Malrotation small bowel - repair CIRCUMCISION, PRIMARY 09/02/2014 PROCEDURE: HISTORICAL CIRCUMCISION TONSILLECTOMY PROCEDURE: HISTORICAL TONSILLECTOMY ELBOW SURGERY 01/18/2012 Left PROCEDURE: HISTORICAL ELBOW SURGERY; COMMENT: Distal Biceps Tendon Repair, Dr. 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; 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 Fatty liver 09/05/2018 DX:Fatty liver Nephrolithiasis 09/05/2018 DX:Nephrolithias is Asbestosis ([facility] V24, [facility] V28) 05/19/2016 DX:Asbestosis (HCC) Family hx of prostate cancer 05/13/2018 DX: Family hx of prostate cancer Colon polyps 04/13/2014 DX:Colon polyps Elevated TSH 06/08/2017 DX:Elevated TSH Hyperlipidemia 04/27/2017 DX:Hyperlipidemi a Low back pain 04/27/2017 DX:Low back pain Osteoarthritis of both knees 10/01/2015 DX: Osteoarthritis of both knees Pleural plaque 09/23/2015 DX:Pleural plaqu e Family History Medical History Relation Name Comments Prostate cancer Brother 1 Prostate cancer Father age 57 No Known Problems Maternal Grandfather No Known Problems Maternal Grandmother Multiple myeloma Mother Diabetes, C olon Polyps No Known Problems Paternal Grandfather No Known Problems Paternal Grandmother Kidney cancer Sister 1 Relation Name Status Comments Brother 1 Alive Brother 2 Alive Brother 3 Alive Brother 4 Alive Father Maternal Grandfather Maternal Grandmother Mother (Age 84) Paternal Grandfather Paternal Grandmother Sister 1 Alive Sister 2 Alive Sister 3 Alive Sister 4 Alive Sister 5 Alive Social History Tobacco Use Types Packs/Day Years Used Date Smoking Tobacco: Former Cigarettes Q uit: 03/24/2018 Smokeless Tobacco: Never Alcohol Use Standard Drinks/Week Comments Not Currently 0 (1 standard drink = 0.6 oz pur e alcohol) Sex and Gender Information Value Date Recorded Sex Assigned at Not on file Legal Sex Male 2:23 AM EST Gender Identity Not on file Sexual Orientation Not on file Obstetrics History Plan of Treatment Upcoming Encounters Date Type Department Care Team ([facility] st Contact Info) Description 02/20/2025 10:00 AM EDT Office Visit Orthopedic Surgery - [place] [address] [phone] Maulik Cuevas, DPM 175 [facility] [address] [place] [address] Health Maintenance Due Date Last Done Comments Hepatitis A Vaccines (1 of 2 - Risk 2-dose series) 08/20/1970 Pneumococcal Vaccine: 50+ Years (1 of 1 - PCV) 08/20/2001 Zoster Vaccines (1 of 2) 08/20/2001 Hepatitis B Vaccines (1 of 3 - Risk 3-dose series) 2011 RSV Immunization Adult Patients (1 - Risk 60-74 years 1-dose series) 2011 Depression Screening 05/24/2024 Abdominal Aortic Aneurysm (AAA) Screen 08/08/2024 Cholesterol Screening (Lipid Panel) 08/08/2024 Colorectal Cancer Screening: Colonoscopy 08/08/2024 Falls Risk Assessment 08/08/2024 Hepatitis C Screening 08/08/2024 Medicare Annual Wellness Visit 08/08/2024 Social Influencers of Health Screening 08/08/2024 COVID-19 Vaccine (3 - 2024-2 6 season) 2025 09/04/2020, 08/14/2020 Influenza Vaccine (#1) 2025 05/24/2012 DTaP,Tdap,and Td Vaccines (3 - Td or Tdap) 01/29/2031 01/29/2021, 05/24/2008 HIB Vaccines Aged Out No longer eligi ble based on patient's age to complete this topic HPV Vaccines Aged Out No longer eligi ble based on patient's age to complete this topic IPV Vaccines Aged Out No longer eligi ble based on patient's age to complete this topic MMR Vaccines Aged Out No longer eligi ble based on patient's age to complete this topic Meningococcal ACWY Vaccine Aged Out N o longer eligible based on patient's age to complete this topic Meningococcal B Vaccine Aged Out No l onger eligible based on patient's age to complete this topic RSV Immunization Patients Under 20 months Aged Out No longer eligible b ased on patient's age to complete this topic Varicella Vaccines Aged Out No longer eligible based on patient's age to complete this topic Procedures Procedure Name Priority Date/Time Associated Diagnosis Comments INJECTION TENDON OR LIGAMENT Routine 11/15/2024 10:00 AM EDT Hallux rigidus of left foot from Last 3 Months Results * Injection tendon or ligament (11/15/2024 10:00 AM EDT) Maulik Hebert DPM - 11/15/2024 10:00 AM EDT Maulik Cuevas DPM 11/15/2024 12:25 PM Injection tendon or ligament Indications: pain Details: 25 G needle Medications: 0.5 mL lidocaine (PF) 1 %; 20 mg triamcinolone acetonide 40 mg/mL Informed Consent: Site: Foot ligament tendon us Maulik Cuevas DPM IN CLINIC/BEDSIDE ORDERAB LES Final Result from Last 3 Months Insurance [employer] MEDICARE ADVANTAGE MEDICAID - [place] Care Teams Date Night Sitter Relationship Specialty Start Date End Date Jose Luis Aguilar MD [address] [place] [address] Dr [facility] PCP - General Family Medicine 08/08/24
--- OUTSIDE RECORDS SUMMARY | 2025-02-12 11:19 | XMS_ITS | Clinical Summary ---
Author Organization [facility] Address [address] [place] [address] Care Team Providers Care Machine Heddle Cleaner Name Role Phone Unavailable Primary Care Provider [...] or Tdap) 05/24/2018 009 Influenza Vaccine (#1) 2025 RSV Adult > 60+ Yrs or Pregn ant (1 - 1-dose 75+ series) 08/20/2026 Hepatitis B Vaccines Aged Out No long er eligible based on patient's age to complete this topic RSV Ped < 20 months Aged Out No longe r eligible based on patient's age to complete this topic
[2025-02-12 11:36] LABS: Hematocrit 41.5 % (42.0-52.0); Hemoglobin 14.5 g/dl (14.0-18.0); Imm Gran Abs Auto 0.01 X10*3/uL (0.00-0.03); Imm Gran Pct Auto 0.2 % (0.0-0.4); Lymphocytes Absolute Auto 1.1 X10*3/uL (1.2-4.9); Mean Corpuscular HGB Conc 34.9 g/dl (31.0-36.0); Mean Corpuscular Hemoglobin 32.4 pg (27.0-33.0); Mean Corpuscular Volume 92.8 fL (80.0-98.0); NRBC Abs Auto 0.000 X10*3/uL (0.0-0.012); NRBC Pct Auto 0.0 /100WBC (0.0-0.2); Platelet Count 150 X10*3/uL (160-400); Red Blood Count 4.47 X10*6/uL (4.60-5.80); White Blood Count 4.6 X10*3/uL (4.8-10.8)
[2025-02-12 12:13] LABS: Alanine Aminotransferase 19 U/L (0-40); Albumin Level 4.2 g/dL (3.5-5.0); Alkaline Phosphatase 52 U/L (39-117); Anion Gap 10 (12-20); Aspartate Amino Transferase 23 U/L (5-37); Blood Urea Nitrogen 16 mg/dL (9-16); Calcium 8.8 mg/dL (8.4-10.2); Carbon Dioxide 27 mmol/L (22-29); Chloride 107 mmol/L (96-108); Cholesterol 247 mg/dL (<200); Estimated Glomerular Filt Rate > 60; HDL Cholesterol 49 mg/dL (>40); Potassium 4.6 mmol/L (3.3-5.1); Sodium 139 mmol/L (135-145); Total Protein 6.5 g/dL (6.5-8.0); Triglycerides 140 mg/dL (<150)
[2025-02-12 12:21] LABS: Free T4 (Free Thyroxine) 0.97 ng/dL (0.71-1.85); Thyroid Stimulating Hormone 2.54 uIU/mL (0.32-4.0)
[2025-02-12 14:20] LABS: Appearance Urine Clear; Glucose Urine UA Negative (Negative); PH 5.5 (5.0-9.0); Specific Gravity - Urine 1.020 (1.005-1.025)
== END 2025-02-12 09:37 | disposition home or self-care (01) ==
LOC: HO.WFDLDS 09:36
PROVIDERS: Visit Provider Family Medicine
DX: Z00.00 Encounter for general adult medical examination without abnormal findings (principal); Z12.5 Encounter for screening for malignant neoplasm of prostate; I10 Essential (primary) hypertension; N40.1 Benign prostatic hyperplasia with lower urinary tract symptoms; E03.9 Hypothyroidism, unspecified
CPT/HCPCS: 36415; 80053; 80061; 81003; 82570; 84153; 84439; 84443; 84480; 85025

== ENCOUNTER 2025-02-19 09:16 | Outpatient (AMB) | payer MEDICARE, SELFPAY ==
--- NOTE | 2025-02-19 09:32 | A.OFFPC_ITS ---
Vital Signs 02/19/25 09:36 Height 5 ft 6 in Weight 154 lb 4 oz BMI 24.9 BP 110/60 Blood Pressure Location Rt brachial Position Sitting Respiration 14 Pulse 68 Pulse Source Pulse Oximeter Temp 97.6 F Temp Source Temporal Artery Scan Pulse Oximetry (%) 97 Intake Visit Reasons: f/u hypothyroidism Intake Note: Luis Carlos presents in the office today for a follow up to hypothyroidism. Allergies No Known Allergies Allergy (Verified 02/19/25 09:35) Medication List - Last Reconciled 02/19/25 by Jose Luis Aguilar MD ascorbic acid (vitamin C) 1 g PO DAILY aspirin 81 mg PO DAILY atorvastatin 40 mg PO BEDTIME 90 days cholecalciferol (vitamin D3) 25 mcg PO DAILY finasteride 5 mg PO DAILY 90 days levothyroxine 50 mcg PO DAILY 90 days magnesium 200 mg PO DAILY naproxen 500 mg PO BID PRN 30 days terazosin 5 mg PO BEDTIME 90 days Tobacco use date assessed: 02/19/25 Fall risk assessment: 1 Fall in past year Last assessed Fall Risk: 02/19/25 Dental Screening Dental Screen Date: 02/19/25 Did you have a dental visit in the last 12 months?: Yes Did you have a dental problem in the last 6 months where you did not have access to dental care?: No Was dental information given to patient?: Patient has dentist HPI f/u hypothyroidism HPI Details 74 y/o male presents to f/u labs. Labs drawn 02/12/25. Reviewed labs with pt. Mild anemia. Triglycerides 140. TC 247. LDL 170. HDL 49. PSA . TSH 254 uIU/mL. Free T4 0.97 ng/dL. Total T3 95 ng/dL. Hx of prediabetes. A1c today 02/19/25 is 5.7%. Reports ongoing back pain. Reports R groin pain after a fall. HPI Comments History of Present Illness Details Documentation assistance for Jose Luis Aguilar MD, was provided by Bin Salazar,? [employer] Machine Operator on 02/19/2025 at 9:51 AM EST. I, Dr. Aguilar, have read, observed, and verified documentation. ? PFSH Medical History (Updated 02/19/25 @ 09:59 by Bin Salazar) Hypothyroidism Hyperlipidemia HTN (hypertension) Diabetes Surgical History (Updated 08/06/24 @ 07:09 by Anna Child RN) Status post tendon reattachment History of cataract surgery History of hernia repair Family History (Updated 02/19/25 @ 09:36 by Helen Carter CMA) Mother Multiple myeloma Father Prostate CA Brother Prostate CA Social History (Updated 02/19/25 @ 09:36 by Helen Carter CMA) Housing: Apartment Alcohol intake: never Patient Tobacco Use Status: Former Tobacco user Tobacco use type: Cigarette Years Smoked: 15 e-Cigarette/Vaping Use: Never Used Second Hand Smoke Exposure: No Use of substances other than those prescribed or required for medical reasons: No service: No Current occupational status: retired Current occupational exposures/hazards: No Cognitive needs: No Hearing needs: No Vision needs: No Questionnaire Thrive Questionnaire Date Thrive assessed: 07/20/24 I am a: Patient What is your living situation today?: I have a steady place to live Within the past 12 months, did the food you bought not last and you didn't have the money to get more?: Never true Within the past 12 months, did you worry whether your food would run out before you got money to buy more?: I choose not to answer this question Do you have trouble paying for medicines?: No Do you have trouble getting transportation to medical appointments?: Yes Do you have trouble paying your heating and electricity bill?: No Do you have trouble taking care of your child, family member or friend?: No Do you have trouble with day-to-day activities such as bathing, preparing meals, shopping, managing finances, etc.?: No Are you currently unemployed and looking for a job?: No Are you interested in more education?: No Please select the resources that you would like help with: None Currently or been in a relationship where the following occur: No concerns reported THRIVE Score: 1 MARCELINA-7 AMB Questionnaire MARCELINA-7 Date MARCELINA - 7 assessed: 06/14/23 Source: Developed by Drs. Tyler Loya, Diana Rios, Niko Hurst and colleagues, with an educational davi from [employer]. Review of Systems Const Denies chills, Denies fatigue, Denies fever(s), Denies headache(s) and Denies weakness ENT Denies dizziness and Denies headache(s) Card Denies dyspnea Resp Denies cough, Denies dyspnea, Denies wheezing and Denies other (shortness of breath) Musc Denies numbness and Denies tingling Neuro Denies dizziness, Denies headache(s), Denies numbness, Denies tingling and Denies weakness Psych Denies anxiety and Denies depression Endo Denies fatigue Aller/Immun Denies wheezing Physical exam (Primary Care) Vital Signs: Last Vital Signs Temp 97.6 F 02/19/25 09:36 Pulse 68 02/19/25 09:36 Resp 14 02/19/25 09:36 BP 110/60 02/19/25 09:36 Pulse Ox 97 02/19/25 09:36 BMI result Body Mass Index 24.9 Tobacco/Smoking Status: Tobacco use Status Tobacco use date assessed 02/19/25 02/19/25 09:39 Patient Tobacco Use Status Former Tobacco user 02/19/25 09:36 Tobacco use type Cigarette 02/19/25 09:36 e-Cigarette/Vaping Use Never Used 02/19/25 09:36 Thrive Assessment: Date of Thrive Assessment Date Thrive assessed 07/20/24 02/19/25 09:34 Currently or been in a relationship where the following occur: No concerns reported Const General: well developed; No acute distress Nutritional Appearance: well nourished Orientation/consciousness: patient oriented x3 HENMT Head: Yes normocephalic and Yes atraumatic Eyes General: appearance normal, both eyes and all related structures Pupils: Equal, round and reactive pupils present EOM: EOMs intact bilaterally Resp Effort & Inspection: normal respiratory effort Auscultation: clear to auscultation bilaterally Cardio Rate: regular rate Rhythm: regular rhythm Heart sounds: S1 normal heart sound present, S2 normal heart sound present, no gallops, no murmurs and no rubs Neuro General: patient oriented x3 and gait normal Cranial nerves: Yes Equal, round and reactive pupils present Psych Affect: normal affect Results AMB Hemoglobin A1c AMB Hemoglobin A1c 5.7 % Last Edit by Helen Carter CMA on 02/19/25 10:05 Coding Level of Care Code Est Pt Level 4 (32935) Diagnoses Essential hypertension I10 Hyperlipidemia E78.5 Hypothyroidism E03.9 Pre-diabetes R73.03 Screening for prostate cancer Z12.5 Back pain M54.9 Right groin pain R10.31 Assessment & Plan Assessment & Plan (1) Essential hypertension: Code(s): I10 - Essential (primary) hypertension Category: Medical Plan: Blood pressure is controlled. Goal is less than 140/90 Continue diet control (2) Hyperlipidemia: Code(s): E78.5 - Hyperlipidemia, unspecified Category: Medical Plan: LDL cholesterol is much too high He had stopped his atorvastatin He will resume this and we can recheck it in a few months (3) Hypothyroidism: Code(s): E03.9 - Hypothyroidism, unspecified Category: Medical Plan: He is taking levothyroxine 50 mcg daily Thyroid hormone levels are all within normal range Continue current medication (4) Pre-diabetes: Code(s): R73.03 - Prediabetes Category: Medical Plan: A1c has increased from 5.6% to 5.7%. Pre diabetes range. Continue working at a diet low in sugars and starches (5) Screening for prostate cancer: Code(s): Z12.5 - Encounter for screening for malignant neoplasm of prostate Category: Medical Plan: PSA is below 4. He is followed by Urology and has an appointment in March. Will send labs to his urologist (6) Back pain: Code(s): M54.9 - Dorsalgia, unspecified Category: Medical (7) Right groin pain: Code(s): R10.31 - Right lower quadrant pain Category: Medical Plan Back and right groin pain after tripping over his dog Back pain as resolved Still has significant right groin pain Will start physical therapy Orders: Orders AMB Hemoglobin A1c Today R73.03 - Prediabetes PT Evaluation and Treatment Today R10.31 - Right lower quadrant pain
[2025-02-19 09:36] VITALS: BP 110/60; PULSE 68; RESP 14; TEMP 36.4; O2SAT 97; BMI 24.9
--- OUTSIDE RECORDS SUMMARY | 2025-02-19 09:59 | XMS_ITS | Clinical Summary ---
Author Organization [facility] Address [address] [place] [address] Care Team Providers Care Staking Technician Name Role Phone Unavailable Primary Care Provider [...]
--- OUTSIDE RECORDS SUMMARY | 2025-02-19 10:00 | XMS_ITS | Clinical Summary ---
Author Organization [address] [facility] Address [address] [place] [address] Phone Care Team Providers Care Batch Attendant Name Role Phone Jose Luis Aguilar MD Primary Care Provider Encounters Date Type Department Care Team Description 12/15/2024 Telephone Orthopedic Surgery [facility] [address] [address] Maulik Cuevas DPM from Last 3 Months Surgical History Surgery Date Site/Laterality Comments KNEE SURGERY Bilateral PROCEDURE: HISTORICAL KNEE SURGERY; COMMENT: Arthroscopic (Left Knee 2004; Right Knee x2: Dr Yepez 1986, Dr Pickard Meniscal Debridement 2004) CARPAL TUNNEL RELEASE Bilateral PROCEDURE: SC NEUROPLASTY &/TRANSPOS MEDIAN NRV CARPAL TUNNE COLONOSCOPY [...] DX:Hearing loss; COMMENT: mild 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; 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 Fatty liver 09/05/2018 DX:Fatty liver Nephrolithiasis 09/05/2018 DX:Nephrolithias is Asbestosis (CMS/HCC V24, CMS/HCC V28) 05/19/2016 DX:Asbestosis (HCC) Family hx of [...] Upcoming Encounters Date Type Department Care Team (Late st Contact Info) Description 02/20/2025 10:00 AM EDT Office Visit Orthopedic Surgery - [place] [address] [address] Maulik Cuevas DPM [address] [address] Health Maintenance Due Date Last Done Comments Colorectal Cancer Screening: Colonoscopy 1950 Hepatitis A Vaccines (1 of 2 - [...] Screen 08/08/2024 Cholesterol Screening (Lipid Panel) 08/08/2024 Falls Risk Assessment 08/08/2024 Hepatitis C [...] on patient's age to complete this topic Insurance [employer] MEDICARE ADVANTAGE MEDICAID - [place] Care Teams Batch Attendant Relationship Specialty Start Date End Date Jose Luis Aguilar MD [address] [place] [address] Dr Ger MA PCP - General Family Medicine 08/08/24
== END 2025-02-19 10:09 | disposition home or self-care (01) ==
LOC: HO.HMCFM 09:17
PROVIDERS: PCP Family Medicine; Visit Provider Family Medicine
DX: I10 Essential (primary) hypertension (principal); E78.5 Hyperlipidemia, unspecified; E03.9 Hypothyroidism, unspecified; R73.03 Prediabetes; Z12.5 Encounter for screening for malignant neoplasm of prostate; M54.9 Dorsalgia, unspecified; R10.31 Right lower quadrant pain

== ENCOUNTER → 2025-02-19 09:16 | Outpatient (BNVA) | payer MEDICARE, SELFPAY | PROVIDERS: PCP Family Medicine; Visit Provider Family Medicine | DX: I10 Essential (primary) hypertension (principal); E78.5 Hyperlipidemia, unspecified; E03.9 Hypothyroidism, unspecified; R73.03 Prediabetes; M54.9 Dorsalgia, unspecified; R10.31 Right lower quadrant pain | CPT/HCPCS: 83036; 99212 ==

== ENCOUNTER 2025-05-02 09:55 | Outpatient (RCR) | payer MEDICARE, OTHER, SELFPAY ==
--- NOTE | 2025-03-22 09:03 | MHC.PT.EP ---
[facility] [place] Office [place] Office [employer] [facility] [address] Conor Bailon [address] [phone] F: [phone] F: [phone] F: [phone] F: [phone] Physical Therapy Plan of Care Date of Evaluation: 03/13/25 Date of Surgery: Diagnosis: R quadrant, R groin pain. Assessment: Pt is a 74 y/o male with PMHx significant for Hypothyroidism, Hyperlipidemia, HTN, Diabetes, Hernia repair (umbilical) who is referred to PT for eval and treat of R quadrant/ R groin pain who reports his symptoms started after he fell on his hands and knees on January 22 managing his dog and his condition is resulting in decreased tolerance for sitting, traveling by vehicle, and recreation/ fitness activities secondary to (+) R lumbar quadrant test, increased posterior LE tissue tension, mild pelvic asymmetry, decreased core strength as well as n/t and pain of his R medial hip and groin. Frequency and Duration: The patient will be seen 1 x/ wk x 5 wks. Short Term Goals: initiate home program. Manager Banquet Goals: I with home program. Pt will be able to sit without groin Sx. Pt will return to regular activity w/o increased Sx. Improve core strength by at least 1/2 MMT grade. Treatment Plan: Modalities to reduce pain, spasms and effusion. Manual therapy to restore motion and function. Therapeutic exercise to improve strength and flexibility. Neuromuscular re-education for posture and balance. Therapeutic activities to return to functional activities of daily living. Electronically signed by: Phi Gonzalez PT. Please sign and return to therapist. Thank you for your referral.
--- NOTE | 2025-05-02 17:01 | MHC.PT.DC ---
[facility] Office [place] Office [place] Office [address] Conor Bailon [address] [phone] F: [phone] F: [phone] F: [phone] F: [phone] Physical Therapy Discharge Report Diagnosis: R quadrant, R groin pain. Date of Surgery: Date of Evaluation: 03/13/25 Date of Discharge: 05/02/25 Treatments to Date: 4 Cancellations to Date: No Shows to Date: Discharge Status: Achieved Goals Improved Function Independent with HEP Discharge Summary: 05/02: Pt returns after > 30 days after haling from bunionectomy; He reports he's been having some L sided LBP though his initial symptom of L quadrant/ groin pain is resolved. He was instructed on basic lumbar stabilization and was informed that if he wishes to be evaluated for LBP a new evaluation would be appropriate. Electronically signed by: Phi Gonzalez PT. Please sign and return to therapist. Thank you for your referral.
== END 2025-05-02 17:01 | disposition home or self-care (01) ==
LOC: HO.PT 09:55
PROVIDERS: PCP Family Medicine; Visit Provider Family Medicine
DX: R10.31 Right lower quadrant pain (principal)
CPT/HCPCS: 97110; 97161

== ENCOUNTER 2025-05-22 09:26 | Outpatient (AMB) | payer MEDICARE, SELFPAY ==
--- NOTE | 2025-05-22 09:47 | MHC.PC.OV ---
Vital Signs 05/22/25 09:53 Height 5 ft 6 in Weight 161 lb BMI 26.0 BP 108/62 Blood Pressure Location Lt brachial Position Sitting Respiration 14 Pulse 68 Pulse Source Pulse Oximeter Temp 97.1 F Temp Source Temporal Artery Scan Pulse Oximetry (%) 97 Oxygen Delivery Method Room Air Intake Visit Reasons: f/u HLD Intake Note: Luis Carlos presents in the office today for a follow up to his cholesterol. Sdv Pilot/Navigator/Dds Operator Required: No Allergies No Known Allergies Allergy (Verified 05/22/25 09:47) Medication List - Last Reconciled 05/22/25 by Jose Luis Aguilar MD ascorbic acid (vitamin C) 1 g PO DAILY aspirin 81 mg PO DAILY atorvastatin 40 mg PO BEDTIME 90 days cholecalciferol (vitamin D3) 25 mcg PO DAILY finasteride 5 mg PO DAILY 90 days levothyroxine 50 mcg PO DAILY 90 days magnesium 200 mg PO DAILY naproxen 500 mg PO BID PRN 30 days terazosin 5 mg PO BEDTIME 90 days Tobacco use date assessed: 05/22/25 Dental Screening Dental Screen Date: 05/22/25 Did you have a dental visit in the last 12 months?: Yes Did you have a dental problem in the last 6 months where you did not have access to dental care?: No Was dental information given to patient?: Patient has dentist HPI f/u HLD HPI Details 74 y/o male presents to f/u HLD, prediabetes. Labs drawn 02/12/25. Reviewed labs with pt. Triglycerides 140. TC 247. LDL 170. HDL 49. He is on artovastatin 40mg. TSH 2.54. Free T4 0.97. He is on levothyroxine 50 mcg daily. Total T3 95. PSA 2.54. BP today 108/62, 68p. Complaints of ongoing L hip pain. [facility] Medical History (Updated 05/22/25 @ 10:19 by Jose Luis Aguilar MD) Hypothyroidism Hyperlipidemia HTN (hypertension) Diabetes Surgical History (Updated 12/28/23 @ 07:09 by Anna Child RN) Status post tendon reattachment History of cataract surgery History of hernia repair Family History Mother Multiple myeloma Father Prostate CA Brother Prostate CA Social History (Updated 05/22/25 @ 09:48 by Helen Carter CMA) Housing: Apartment Alcohol intake: never Patient Tobacco Use Status: Former Tobacco user Tobacco use type: Cigarette Years Smoked: 15 e-Cigarette/Vaping Use: Never Used Second Hand Smoke Exposure: No service: No Current occupational status: retired Current occupational exposures/hazards: No Cognitive needs: No Hearing needs: No Vision needs: No Questionnaire Thrive Questionnaire Date Thrive assessed: 07/20/24 I am a: Patient What is your living situation today?: I have a steady place to live Within the past 12 months, did the food you bought not last and you didn't have the money to get more?: Never true Within the past 12 months, did you worry whether your food would run out before you got money to buy more?: I choose not to answer this question Do you have trouble paying for medicines?: No Do you have trouble getting transportation to medical appointments?: Yes Do you have trouble paying your heating and electricity bill?: No Do you have trouble taking care of your child, family member or friend?: No Do you have trouble with day-to-day activities such as bathing, preparing meals, shopping, managing finances, etc.?: No Are you currently unemployed and looking for a job?: No Are you interested in more education?: No Currently or been in a relationship where the following occur: No concerns reported THRIVE Score: 1 MARCELINA-7 AMB Questionnaire MARCELINA-7 Date MARCELINA - 7 assessed: 06/14/23 Source: Developed by Drs. Tyler Loya, Diana Rios, Niko Hurst and colleagues, with an educational davi from [employer]. Review of Systems Const Denies chills, Denies fatigue, Denies fever(s), Denies headache(s) and Denies weakness ENT Denies dizziness and Denies headache(s) Card Denies dyspnea Resp Denies cough, Denies dyspnea, Denies wheezing and Denies other (shortness of breath) Musc Denies numbness and Denies tingling Neuro Denies dizziness, Denies headache(s), Denies numbness, Denies tingling and Denies weakness Psych Denies anxiety and Denies depression Endo Denies fatigue Aller/Immun Denies wheezing Physical exam (Primary Care) Vital Signs: Last Vital Signs Temp 97.1 F 05/22/25 09:53 Pulse 68 05/22/25 09:53 Resp 14 05/22/25 09:53 BP 108/62 05/22/25 09:53 Pulse Ox 97 05/22/25 09:53 Oxygen Delivery Method Room Air 05/22/25 09:53 BMI result Body Mass Index 26.0 Tobacco/Smoking Status: Tobacco use Status Tobacco use date assessed 05/22/25 05/22/25 09:48 Patient Tobacco Use Status Former Tobacco user 05/22/25 09:48 Tobacco use type Cigarette 05/22/25 09:48 e-Cigarette/Vaping Use Never Used 05/22/25 09:48 Thrive Assessment: Date of Thrive Assessment Date Thrive assessed 07/20/24 05/22/25 09:48 Currently or been in a relationship where the following occur: No concerns reported Const General: well developed; No acute distress Nutritional Appearance: well nourished Orientation/consciousness: patient oriented x3 HENMT Head: Yes normocephalic and Yes atraumatic Eyes General: appearance normal, both eyes and all related structures Pupils: Equal, round and reactive pupils present EOM: EOMs intact bilaterally Resp Effort & Inspection: normal respiratory effort Neuro General: patient oriented x3 and gait normal Cranial nerves: Yes Equal, round and reactive pupils present Psych Affect: normal affect Coding Level of Care Code Est Pt Level 4 (26246) Diagnoses Pre-diabetes R73.03 Essential hypertension I10 Hyperlipidemia E78.5 Hypothyroidism E03.9 Back pain M54.9 Left hip pain M25.552 Assessment & Plan Assessment & Plan (1) Pre-diabetes: Code(s): R73.03 - Prediabetes Category: Medical Plan: A1c now 5.5% which is top normal range. Continue working on diet low in sugars and starches (2) Essential hypertension: Code(s): I10 - Essential (primary) hypertension Category: Medical Plan: Blood pressure is well controlled. Goal is less than 140/90 Continue diet control (3) Hyperlipidemia: Code(s): E78.5 - Hyperlipidemia, unspecified Category: Medical Plan: Patient had stopped his atorvastatin prior to last check. Will have him get this drawn prior to next encounter and we can discuss (4) Hypothyroidism: Code(s): E03.9 - Hypothyroidism, unspecified Category: Medical Plan: Thyroid level in January was within normal range (5) Back pain: Code(s): M54.9 - Dorsalgia, unspecified Category: Medical (6) Left hip pain: Code(s): M25.552 - Pain in left hip Category: Medical Plan Patient has left lateral buttock and left hip pain with tenderness over gluteus medius and piriformis muscles and some radiation of pain down left lateral thigh. Mild positive Trendelenburg sign Start physical therapy Try meloxicam Ice/heat Check x-rays of left hip If not improving or if worsens, will refer to ortho Orders: Orders AMB Hemoglobin A1c Today R73.03 - Prediabetes XR hip LT min 2V Today M25.552 - Pain in left hip PT Evaluation and Treatment Today M25.552 - Pain in left hip XR lumbar spine 2-3V Today M25.552 - Pain in left hip Lipid Panel Today Z00.00 - Encounter for general adult medical examination without abnormal findings Comprehensive [place]. Panel Fast Today Z00.00 - Encounter for general adult medical examination without abnormal findings Medications: New meloxicam 15 mg PO DAILY 30 tabs 2RF 30 days Discontinued naproxen Discontinued Reason: Doctor's Order 500 mg PO BID 30 days PRN 60 tabs 3RF pain
[2025-05-22 09:53] VITALS: BP 108/62; PULSE 68; RESP 14; TEMP 36.2; O2SAT 97; BMI 26.0
--- OUTSIDE RECORDS SUMMARY | 2025-05-22 12:00 | XMS_ITS | Clinical Summary ---
Author Organization [address] [facility] Address [address] [place] [address] Phone Care Team Providers Care Lacquer Sizer Name Role Phone Jose Luis Aguilar MD Primary Care Provider [phone] Allergies No known active allergies Medications atorvastatin (LIPITOR) 40 mg tablet Take 1 tablet (40 mg total) by mouth. at bedtime. 01/29/2025 Active cyclobenzaprine (FLEXERIL) 5 mg tablet Take 1 tablet (5 mg total) by mouth every 8 (eight) hours if needed. for pain 01/31/2025 Active finasteride (PROSCAR) 5 mg tablet Take 1 tablet (5 mg total) by mouth 1 (one) time each day. 12/26/2024 Active levothyroxine (SYNTHROID, LEVOTHROID) 50 mcg tablet Take 1 tablet (50 mcg total) by mouth 1 (one) time each day. Active Myrbetriq 50 mg 24 hr tablet Take 1 tablet (50 mg total) by mouth 1 (one) time each day. 01/01/2025 Active terazosin (HYTRIN) 5 mg capsule Take 1 capsule (5 mg total) by mouth 1 (one) time each day. 12/08/2024 Active oxyCODONE (ROXICODONE) 5 mg immediate release tabletIndicatio ns:Hallux rigidus of left foot,Acquired hallux valgus of left foot Take 1 tablet (5 mg total) by mouth every 4 (four) hours if needed for severe pain. Max Daily Amount: 30 mg 35 tablet 03/30/2025 Active ibuprofen (ADVIL,MOTRIN) 800 mg tablet Take 1 tablet (800 mg total) by mouth 3 (three) times a day. 90 each 03/30/2025 04/29/20 25 Active Problems Problem Noted Date Diagnosed Date Hallux rigidus of left foot 02/20/2025 Acquired hallux valgus of left foot 02/20/2025 Encounters Date Type Department Care Team Description 05/03/2025 2:00 PM EST Office Visit Orthopedic Surgery [place] [id number] [phone] Maulik Cuevas DPM Postoperative examination (Primary Dx) 04/12/2025 1:15 PM EST Office Visit Orthopedic [place] [address] [phone] Maulik Cuevas DPM Post-operative state (Primary Dx); Acquired hallux valgus of left foot 03/30/2025 7:40 AM EST Anesthesia Event [facility] OR [address] [place] [phone] Victor Hugo Markham MD 03/30/2025 7:30 AM EST - 03/30/2025 9:30 AM EST Surgery [facility] OR [address] [place] [phone] Maulik Cuevas DPM BUNIONECTOMY LEFT FOOT [57405 (CPT )] 03/30/2025 5:57 AM EST - 03/30/2025 9:20 AM EST Hospital Encounter [facility] [place] [address] [place] [phone] Maulik Cuevas DPM Hallux rigidus of left foot; Acquired hallux valgus of left foot Discharge Disposition: Home or Self Care 03/27/2025 8:00 AM EST Consult Orthopedic [facility] [address] [phone] Maulik Cuevas DPM Acquired hallux valgus of left foot (Primary Dx); Hallux rigidus of left foot; Neuritis 02/27/2025 Telephone Orthopedic [facility] [address] [phone] [place] 02/27/2025 Telephone Orthopedic Surgery [facility] [address] [phone] Maulik Cuevas DPM 02/20/2025 10:00 AM EDT Office Visit Orthopedic Surgery [facility] [address] [phone] Maulik Cuevas, PETE Acquired hallux valgus of left foot (Primary Dx); Hallux rigidus of left foot from Last 3 Months Surgical History Surgery Date Site/Laterality Comments KNEE SURGERY Bilateral PROCEDURE: HISTORICAL KNEE SURGERY; COMMENT: Arthroscopic (Left Knee 2004; Right Knee x2: Dr Yepez 1986, Dr Pickard Meniscal Debridement 2004) CARPAL TUNNEL RELEASE Bilateral PROCEDURE: HI NEUROPLASTY &/TRANSPOS MEDIAN NRV CARPAL TUNNE COLONOSCOPY [...] COMMENT: Distal Biceps Tendon Repair, Dr. Pickard ROTATOR CUFF REPAIR 05/24/2022 - 05/23/2023 Right Medical History Medical History Date Comments Hypothyroidism DX:Hypothyroidis m Lung nodule DX:Lung nodule; COMMENT: right lung Prediabetes 09/05/2018 DX:Prediabetes; COMMENT: 2014 A1C 6.0 Malrotation of colon (CMS/HCC V28) 09/05/2018 DX:Malrotation [...] Maternal Grandfather Maternal Grandmother Mother (Age 84) Niece Other Niece had MH ev ent in . Son's muscle bx was inconclusive. Pt is unaware of any other tests done. Paternal Grandfather Paternal Grandmother Sister 1 Alive Sister 2 Alive Sister 3 Alive Sister 4 Alive Sister 5 Alive Social History Tobacco Use Types Packs/Day Years Used Date Smoking Tobacco: Former Cigarettes 0.5 Q uit: 03/24/2018 Smokeless Tobacco: Never Alcohol Use Standard Drinks/Week Comments Yes 0 (1 standard drink = 0.6 oz pur e alcohol) [employer] Interpersonal Safety Answer Date Record ed Physical Abuse Unrecognized value 03/30/2025 Verbal Abuse Unrecognized value 03/30/2025 Sex and Gender Information Value Date Recorded Sex Assigned at Male 03/28/2025 9:35 AM EST Legal Sex Male 2:23 AM EST Gender Identity Not on file Sexual Orientation Not on file Last Filed Vital Signs Vital Sign Reading Time Taken Comments Blood Pressure 127/83 03/30/2025 8:54 AM EST Pulse 70 03/30/2025 8:54 AM EST Temperature 35.7 C (96.3 F) 03/30/2025 8:42 AM EST Respiratory Rate 18 03/30/2025 8:42 AM EST Oxygen Saturation 96% 03/30/2025 8:54 AM EST Inhaled Oxygen Concentration - - Weight 70.3 kg (155 lb) 03/30/2025 6:31 AM EST Height 167.6 cm (5' 6 ) 03/30/2025 6:31 AM EST Body Mass Index 25.02 03/30/2025 6:31 AM EST Plan of Treatment Upcoming Encounters Date Type Department Care Team (Late st Contact Info) Description 08/01/2025 10:30 AM EDT Office Visit Orthopedic Surgery - [place] 250 175 [facility] [address] [place] [phone] Maulik Cuevas, DPM 175 [facility] [address] [place] [phone] Health Maintenance Due Date Last Done Comments Colorectal Cancer Screening: Colonoscopy 1950 Hepatitis A Vaccines (1 of 2 - Risk 2-dose series) 08/20/1970 Pneumococcal Vaccine: 50+ Years (1 of 1 - PCV) 08/20/2001 RSV Immunization Adult Patients (1 - Risk 50-74 years 1-dose series) 08/20/2001 Zoster Vaccines (1 of 2) 08/20/2001 Hepatitis B Vaccines (1 of 3 - Risk 3-dose series) 2011 Depression Screening 05/24/2024 Abdominal Aortic Aneurysm (AAA) Screen 08/08/2024 Cholesterol Screening (Lipid Panel) 08/08/2024 Hepatitis C Screening 08/08/2024 Medicare Annual Wellness Visit 08/08/2024 Social Influencers of Health Screening 08/08/2024 COVID-19 Vaccine (3 - 2024-2 6 season) 2025 09/04/2020, 08/14/2020 Influenza Vaccine (#1) 2025 05/24/2012 Falls Risk Assessment 03/30/2026 03/30/2025 DTaP,Tdap,and Td Vaccines (3 - Td or [...] Procedure Name Priority Date/Time Associated Diagnosis Comments XR FOOT 3+ VIEWS LEFT Routine 05/03/2025 1:50 PM EST Postoperative examination XR FOOT 3+ VIEWS LEFT Routine 04/12/2025 1:15 PM EST Post-operative state XR FOOT 3+ VIEWS LEFT Routine 03/30/2025 9:10 AM EST TISSUE EXAM Routine 03/30/2025 8:13 AM EST Hallux rigidus of left foot Acquired hallux valgus of left foot HI CORRECTION HALLUX VALGUS W/RESECTION PROXIMAL PHALANX BASE ANY METHOD 03/30/2025 7:39 AM EST Hallux rigidus of left foot Acquired hallux valgus of left foot Special Needs TIME CHANGE VIA PHONE W/PRESTON VAIL 03/26 PROCEDURAL ECG Routine 03/30/2025 6:39 AM EST from Last 3 Months Results * XR Foot 3+ Views Left (05/03/2025 1:50 PM EST) Only the most recent of3 resultswithin the time period is included. Anatomical Region Laterality Modality Lower Extremities, Foot Left Computed Radiography Narrative 05/15/2025 6:18 PM EST Left foot 3 views Stable postoperative changes from Mitchell bunionectomy with improved positioning of the metatarsophalangeal joint resection hypertrophic bone us Mauilk Cuevas DPRoger IMG XR PROCEDURES Final R esult * Tissue exam (03/30/2025 8:13 AM EST) Final Diagnosis Toe, Left, 1st metatarsal head-bunionectomy : -DEGENERATIVE OSTEOARTHROPATHY, CONSISTENT WITH BUNION/EXOSTOSIS 04/06/2025 9:10 AM EST [facility] at 0910 EST Gross Description A. Toe, Left, 1st metatarsal head: Labeled toe L, first metat . Received in formalin is a 3.8 x 2.8 x 0.7 cm aggregate of irregular disrupted pink-yellow bone fragments with minimal attached soft tissue. The trabecular bone is pink-yellow and unremarkable. Hide Or Skin Buffer sections are submitted in one cassette following decalcification, three pieces. RODNEY 04/06/2025 9:10 AM EST [facility] Disclaimer Unless otherwise specified, all tissue is 10% NB formalin fixed and paraffin embedded. 04/06/2025 9:10 AM EST [facility] Bone Structure of toe of left foot / Unknown 03/30/2025 8:13 AM EST 03/30/2025 10:32 AM EST us Maulik Cuevas DPM LAB PATHOLOGY ORDERABLES Final Result Performing Organization Address City/[facility]/ZIP Co de Phone Number [facility]) [facility] [address] [place] [address], * ECG 12 lead - Procedural (No Charge) (03/30/2025 6:39 AM EST) Ventricular Rate ECG 66 BPM GEMUSE Atrial Rate 66 BPM GEMUSE P-R Interval 178 ms GEMUSE QRS Duration 70 ms GEMUSE Q-T Interval 424 ms GEMUSE QTc 444 ms GEMUSE P Wave [place] 46 degrees GEMUSE R [place] 1 degrees GEMUSE T [place] 40 degrees GEMUSE ECG Interpretation Normal sinus rhythm Possible Septal infarct , age undetermined No previous ECGs available Confirmed by TINO FRAGOSO ([id number]) on 03/30/2025 8:33:40 AM GEMUSE 03/30/2025 6:39 AM EST 03/30/2025 8:33 AM EST us Victor Hugo Markham MD ECG ORDERABLES Final Result GEMUSE from Last 3 Months Insurance [employer] MEDICARE ADVANTAGE MEDICAID - [place] Care Teams Lacquer Sizer Relationship Specialty Start Date End Date Jose Luis Aguilar MD [address] [place] [address] Dr Ger [place] PCP - General Family Medicine 08/08/24
--- OUTSIDE RECORDS SUMMARY | 2025-05-22 12:00 | XMS_ITS | Clinical Summary ---
Author Organization [facility] Prior to 10/21/24 Address [address] [place] [address] Care Team Providers Care Netting Inspector Name Role Phone Unavailable Primary Care Provider [...]
== END 2025-05-22 10:18 | disposition home or self-care (01) ==
LOC: HO.HMCFM 09:26
PROVIDERS: PCP Family Medicine; Visit Provider Family Medicine
DX: R73.03 Prediabetes (principal); I10 Essential (primary) hypertension; E78.5 Hyperlipidemia, unspecified; E03.9 Hypothyroidism, unspecified; M54.9 Dorsalgia, unspecified; M25.552 Pain in left hip

== ENCOUNTER → 2025-05-22 10:54 | Outpatient (BNV) | payer MEDICARE, SELFPAY | PROVIDERS: PCP Family Medicine; Visit Provider Radiology Diagnostic Radiology | DX: M25.552 Pain in left hip (principal); M51.369 Other intervertebral disc degeneration, lumbar region without mention of lumbar back pain or lower extremity pain | CPT/HCPCS: 72100; 73502 ==